=== PATIENT | male | born 1960 | race Caucasian/White ===

== ENCOUNTER 2018-01-05 07:59 | Inpatient (IN) | payer OTHER ==
[~2018-01-05] VITALS: Ht 182.9 cm; Wt 62.2 kg
[2018-01-05] VITALS (9 sets, daily range): BP systolic 100–150; BP diastolic 58–80; PULSE 58–101; RESP 12–22; TEMP 98–99.1; O2SAT 97–100
[~2018-01-05 07:59] MED LIST: FLEX10TA PO; PROT40TA PO; SULF500T35 PO
[2018-01-05] MEDS ORDERED: BALS750C PO (08:16)
[2018-01-05] MEDS ORDERED: AZAT50 PO (08:16)
[2018-01-05] MEDS ORDERED: SODIUM CHLOR 0.9% 1000 ML INJ 1,000 ML IV SCH ×2 (08:51→14:00)
[2018-01-05] MEDS ORDERED: DICYCLOMINE HCL 20 MG/2 ML VIAL IM ONE (09:00)
[2018-01-05] MEDS ORDERED: ONDANSETRON HCL 4 MG/2 ML VIAL IVP ONE (09:00)
[2018-01-05] MEDS ORDERED: SODIUM CHLORIDE 0.9% FLUSH 10 ML FLUSH IV FLUSH PRN ×2 (09:00→13:15)
[2018-01-05] MEDS ORDERED: DIATRIZOATE MEGLUM/DIATRIZOATE SOD 9 ML CUP ONE (09:04)
[2018-01-05 09:15] LABS: BLOOD, URINE NEG (NEG); GLUCOSE,URINE NEG (NEG); KETONE, URINE TRACE mg/dL (NEG); MUCUS URINE MANY /lpf (OCC); NITRITE,URINE NEG (NEG); URINE LEUKOCYTE ESTERASE NEG (NEG)
[2018-01-05 09:17] LABS: BILIRUBIN, URINE NEG (NEG)
[2018-01-05 09:18] LABS: AUTOMATED NEUTROPHIL # 4.6 TH/MM3 (1.8-7.7); BASOPHIL % 0.3 % (0.0-2.0); EOSINOPHIL # 0.1 TH/MM3 (0-0.4); EOSINOPHIL % 1.8 % (0.0-4.0); HEMOGLOBIN 13.7 GM/DL (13.0-17.0); LYMPH % 11.5 % (9.0-44.0); LYMPHOCYTE # 0.7 TH/MM3 (1.0-4.8); MEAN CELL VOLUME 92.2 FL (80.0-100.0); MEAN CORPUSCULAR HEMOGLOBIN 31.6 PG (27.0-34.0); MEAN CORPUSCULAR HGB CONC 34.3 % (32.0-36.0); MEAN PLATELET VOLUME 7.3 FL (7.0-11.0); MONO % 8.7 % (0.0-8.0); MONOCYTE # 0.5 TH/MM3 (0-0.9); NEUT % 77.7 % (16.0-70.0); PLATELET COUNT 366 TH/MM3 (150-450); RED BLOOD COUNT 4.34 MIL/MM3 (4.50-5.90); RED CELL DISTRIBUTION WIDTH 15.5 % (11.6-17.2); URINE COLOR AMBER (YELLW/STRAW); WHITE BLOOD COUNT 5.9 TH/MM3 (4.0-11.0)
[2018-01-05 09:36] LABS: ALT (GPT) 7 U/L (12-78)
[2018-01-05 09:38] LABS: ALKALINE PHOSPHATASE 51 U/L (45-117); TOTAL BILIRUBIN ADULT 0.8 MG/DL (0.2-1.0)
[2018-01-05 09:45] LABS: ALBUMIN 3.3 GM/DL (3.4-5.0); AST (GOT) 21 U/L (15-37); BICARBONATE 26.2 MEQ/L (21.0-32.0); BLOOD UREA NITROGEN 7 MG/DL (7-18); CHLORIDE 103 MEQ/L (98-107); CREATININE 0.77 MG/DL (0.60-1.30); GLOMERULAR FILTRATION RATE 105 ML/MIN (>89); GLUCOSE,RANDOM 89 MG/DL (74-106); SODIUM (NA) 136 MEQ/L (136-145)
[2018-01-05] MEDS ORDERED: IOHEXOL 350 MG/ML 10 ML VIAL (for RAD DIAG) IVCONTRAST ONE (12:39)
--- NOTE | 2018-01-05 12:52 | RADRPT ---
EXAM DATE/TIME: 01/05/2018 12:33 [place] COMPARISON: CT ABDOMEN & PELVIS W CONTRAST, March 17, 2013, 11:28. INDICATIONS : Abdominal pain IV CONTRAST: 70 cc Omnipaque 350 (iohexol) IV ORAL CONTRAST: Prescribed oral contrast ingested. RADIATION DOSE: 4.91 CTDIvol (mGy) MEDICAL HISTORY : Ulcerative colitis. Hepatitis B. SURGICAL HISTORY : None. ENCOUNTER: Initial ACUITY: 1 day PAIN SCALE: 6/10 LOCATION: Bilateral Abdomen TECHNIQUE: Volumetric scanning of the abdomen and pelvis was performed. Using automated exposure control and ad justment of the mA and/or kV according to patient size, radiation dose was kept as low as reasonably achievable to obtain optimal diagnostic quality images. DICOM format image data is available electro nically for review and comparison. FINDINGS: The lung base is are clear The liver is free of focal defects The spleen, pancreas and adrenals appear normal There is symmetric renal function There is bowel wall thickening beginning in mid-descending colon extending to mid descending colon wi th some mild stranding consistent with 8 colitis. There is no ascites There is no retroperitoneal adenopathy Pelvic contents are unremarkable CONCLUSION: Mild to moderate colitis involving transverse colon There is no free air or free fluid . Alex Johnson MD FACR on January 05, 2018 at 12:49 Board Certified Radiologist. This report was verified electronically.
[2018-01-05] MEDS ORDERED: ONDANSETRON HCL 4 MG/2 ML VIAL IVP PRN (13:15)
[2018-01-05] MEDS ORDERED: ACETAMINOPHEN 325 MG TAB PO PRN (13:15)
[2018-01-05] MEDS ORDERED: NALOXONE HCL 0.4 MG/ML AMP IV PUSH PRN (13:15)
--- NOTE | 2018-01-05 13:32 | HHI.HP ---
HPI Service [facility] Hospitalists Primary Care Physician Ezio Vail MD, PhD Admission Diagnosis C Diff diarrhea Chief Complaint: diarrhea Travel History International Travel<30 Days: No Contact w/Intl Traveler <30 Da: No Traveled to Known Affected Are: No History of Present Illness This is a 57 year old male patient with a past medical which includes chronic ulcerative colitis for 20+ years, DDD, hep C virus. Patient was having bloody diarrhea and was started on Cirpo and Flagyl for possible colitis flare up about two weeks ago. After completing the Cipro and Flagyl his bloody diarrhea stopped. Patient then had colonoscopy (01/01) at that time patient was told to double his Azathioprine. Patient then presented to the ER today with Diarrhea, C diff positive. Patient reports associate intermitted stabbing abd pain as well. Patient has been having uncontrollable diarrhea up to 30 episodes a day. Patient reports feeling run down and fatigued, possible subjective fever although he did not check with a thermometer. Patient believes has has lost between 10 to 15 pounds over the past 2-3 weeks. Patient denies chills, SOB, chest pain or diaphoresis. Patient reports he has not had C diff before. Review of Systems Constitutional: COMPLAINS OF: Weight loss Gastrointestinal: COMPLAINS OF: Abdominal pain, Diarrhea Past Family Social History Past Medical History chronic ulcerative colitis, DDD, hep C virus Past Surgical History Biopsy of liver, colonoscopy, Paravertebral nerve block Reported Medications Azathioprine 50 Mg Tab 100 Mg PO DAILY Hazardous agent use appropriate precautions for handling and disposal. Balsalazide 750 Mg Cap 750 Mg PO TID Allergies: Coded Allergies: No Known Allergies (Verified Allergy, Unknown, 01/05/18) Family History Noncontributory Social History denies current ETOH use Former tobacco use Physical Exam Vital Signs Vital Signs Date Time Temp Pulse Resp B/P (MAP) Pulse Ox O2 Delivery O2 Flow Rate FiO2 01/05/18 12:00 68 131/74 (93) 01/05/18 10:00 64 12 132/80 (97) 100 Room Air 01/05/18 08:58 100 Room Air 01/05/18 08:56 70 22 100/74 (83) 100 Room Air 01/05/18 08:00 98.0 101 18 114/66 (82) 100 Physical Exam GENERAL: This is a thin, well-developed patient, fatigued and weak in appearance SKIN: No rashes, ecchymoses or lesions. Cool and dry. HEAD: Atraumatic. Normocephalic. No temporal or scalp tenderness. EYES: Extraocular motions intact. No scleral icterus. No injection or drainage. CARDIOVASCULAR: Regular rate and rhythm RESPIRATORY: Clear to auscultation. Breath sounds equal bilaterally. GASTROINTESTINAL: Abdomen soft, generalized tenderness, nondistended. MUSCULOSKELETAL: Extremities without clubbing, cyanosis, or edema. No joint tenderness, effusion, or edema noted. No calf tenderness. Negative Homans sign bilaterally. NEUROLOGICAL: Awake and alert. No focal deficits. Motor and sensory grossly within normal limits. 4-5 out of 5 muscle strength in all muscle groups. Normal speech. Laboratory Laboratory Tests Test 01/05/18 08:50 White Blood Count 5.9 Red Blood Count 4.34 Hemoglobin 13.7 Hematocrit 40.0 Mean Corpuscular Volume 92.2 Mean Corpuscular Hemoglobin 31.6 Mean Corpuscular Hemoglobin Concent 34.3 Red Cell Distribution Width 15.5 Platelet Count 366 Mean Platelet Volume 7.3 Neutrophils (%) (Auto) 77.7 Lymphocytes (%) (Auto) 11.5 Monocytes (%) (Auto) 8.7 Eosinophils (%) (Auto) 1.8 Basophils (%) (Auto) 0.3 Neutrophils # (Auto) 4.6 Lymphocytes # (Auto) 0.7 Monocytes # (Auto) 0.5 Eosinophils # (Auto) 0.1 Basophils # (Auto) 0.0 CBC Comment DIFF FINAL Differential Comment Urine Color ODETTE Urine Turbidity HAZY Urine pH 6.0 Urine Specific [place] 1.025 Urine Protein 30 Urine Glucose (UA) NEG Urine Ketones TRACE Urine Occult Blood NEG Urine Nitrite NEG Urine Bilirubin NEG Urine Urobilinogen 2.0 Urine Leukocyte Esterase NEG Urine RBC LESS THAN 1 Urine WBC 2 Urine Mucus MANY Microscopic Urinalysis Comment CULT NOT INDICATED Stool C. difficile Toxin (PCR) POSITIVE Stl C. difficile Toxin Epiderm 027 PRESUMPTIVE NEGATIVE Blood Urea Nitrogen 7 Creatinine 0.77 Random Glucose 89 Total Protein 7.0 Albumin 3.3 Calcium Level 9.0 Alkaline Phosphatase 51 Aspartate Amino Transf (AST/SGOT) 21 Alanine Aminotransferase (ALT/SGPT) 7 Total Bilirubin 0.8 Sodium Level 136 Potassium Level 4.4 Chloride Level 103 Carbon Dioxide Level 26.2 Anion Gap 7 Estimat Glomerular Filtration Rate 105 Lipase 71 Date/Time Source Procedure Growth Status 01/05/18 08:50 Stool Stool Pending Received Result Diagram: 01/05/1850 01/05/18 0850 Imaging Last Impressions Abdomen/Pelvis CT 01/05/18850 Signed Impressions: Service Date/Time: Friday, January 05, 2018 12:33 - CONCLUSION: Mild to moderate colitis involving transverse colon There is no free air or free fluid . Alex Johnson MD FACR [place] VTE Risk Assessment Caprini VTE Risk Assessment: No/Low Risk (score <= 1) Caprini Risk Assessment Model Point Value = 1 Point Value = 2 Point Value = 3 Point Value = 5 Age 41-60 Minor surgery BMI > 25 kg/m2 Swollen legs Varicose veins or History of unexplained or recurrent spontaneous Oral contraceptives or hormone replacement Sepsis (< 1 month) Serious lung disease, including pneumonia (< 1 month) Abnormal pulmonary function Acute myocardial infarction Congestive heart failure (< 1 month) History of inflammatory bowel disease Medical patient at bed rest Age 61-74 Arthroscopic surgery Major open surgery (> 45 min) Laparoscopic surgery (> 45 min) Malignancy Confined to bed (> 72 hours) Immobilizing plaster cast Central venous access Age >= 75 History of VTE Family history of VTE Factor V Leiden Prothrombin [id number] Lupus anticoagulant Anticardiolipin antibodies Elevated serum homocysteine Heparin-induced thrombocytopenia Other congenital or acquired thrombophilia Stroke (< 1 month) Elective arthroplasty Hip, pelvis, or leg fracture Acute spinal cord injury (< 1 month) Prophylaxis Regimen Total Risk Factor Score Risk Level Prophylaxis Regimen 0-1 Low Early ambulation 2 Moderate Order ONE of the following: *Sequential Compression Device (SCD) *Heparin 5000 units SQ BID 3-4 Higher Order ONE of the following medications: *Heparin 5000 units SQ TID *Enoxaparin/Lovenox 40 mg SQ daily (WT < 150 kg, CrCl > 30 mL/min) *Enoxaparin/Lovenox 30 mg SQ daily (WT < 150 kg, CrCl > 10-29 mL/min) *Enoxaparin/Lovenox 30 mg SQ BID (WT < 150 kg, CrCl > 30 mL/min) AND/OR *Sequential Compression Device (SCD) 5 or more Highest Order ONE of the following medications: *Heparin 5000 units SQ TID (Preferred with Epidurals) *Enoxaparin/Lovenox 40 mg SQ daily (WT < 150 kg, CrCl > 30 mL/min) *Enoxaparin/Lovenox 30 mg SQ daily (WT < 150 kg, CrCl > 10-29 mL/min) *Enoxaparin/Lovenox 30 mg SQ BID (WT < 150 kg, CrCl > 30 mL/min) AND *Sequential Compression Device (SCD) Assessment and Plan Problem List: (1) C. difficile diarrhea ICD Codes: A04.72 - Enterocolitis due to Clostridium difficile, not specified as recurrent Plan: C diff diarrhea This is a 57 year old male patient with a past medical which includes chronic ulcerative colitis, DDD, hep C. Patient was started on Cirpo and Flagyl for possible colitis. Patient then presented to the ER today with Diarrhea, C diff positive. C diff positive Vanco oral 125 mg QID supportive care IV fluids Consult GI, patient with ulcerative colitis seen on colonoscopy 01/01/18 and now with C diff recheck BMP in AM Ulcerative colitis continue patient's home Azathioprine 50mg PO BID and Balsalazide 750 mg PO TID, discussed with GI recommend holding request GI consult to assist recent colonoscopy 01/01/18: Normal terminal ileum, colonic mucosa appeared normal in the ascending colon, cecum, transverse colon and descending colon, Circumferential abnormal mucosa was found in the sigmoid colon and rectum. The mucosa was congested, edematous, erythematous, nodular, friable, ulcerated and had scarring and deep ulcers; multiple biopsies were performed. CT abd/Pelvis reviewed and reveals: Mild to Moderate colitis involving transverse colon. There is no free air or free fluid. (2) Ulcerative colitis ICD Codes: K51.90 - Ulcerative colitis, unspecified, without complications Assessment and Plan Patient examined. Assessment and plan formulated with Sana Claudio PA-C. I agree with the above. recent UC flare seen by GI. s/p c-scope on 01/01 with sigmoid and rectal involvement. pt on cipro/flagyl x 1 week before c scope for bloody diarrhea. imuran was doubled. now here with persistent up to 30bm/day called dr Tarango. hold imuran. will start ivf and vanco. admit. Sana Claudio Jan 05, 2018 13:32 Bg Wilkerson MD Jan 05, 2018 14:26
[2018-01-05] MEDS ORDERED: metroNIDAZOLE 500 MG TAB PO SCH (14:00)
--- NOTE | 2018-01-05 14:33 | PD.CONS ---
HPI History of Present Illness This is a 57 year old M with GI history significant for ulcerative colitis and history of Hepatitis C. Pt is known to our service, recently evaluated in the clinic for bloody diarrhea, was prescribed Cipro and Flagyl for one week for UC flare. Pt reports finishing abx prior to colonoscopy done by Dr. Lora (01/01) --> Normal terminal ileum, Colonic mucosa appeared normal in the ascending colon , cecum, transverse colon, and descending colon, biopsies obtained every 10cm, circumferential abnormal mucosa in the sigmoid colon and rectum. Mucosa appeared congested, edematous, erythematous, friable, ulcerated and had scarring and deep ulcers. Internal hemorrhoids. Pt reports his Azathioprine dosage was doubled, currently 100mg daily and he was continued on Balsalazide at 750mg daily. He denies any continued blood in diarrhea, however, states the diarrhea has been increasing in frequency. Now at least 30 episodes a day with associated fecal incontinence. C. Diff tested in ER, toxin PCR positive, epid negative. Pt denies history of C. Diff. Denies recent abx other than Cipro and Flagyl recently prescribed by our service. He thinks he may have had a fever Friday morning because he woke up covered in sweat, but he did not check his temperature. Denies recent travel. Reports lower abdominal pain, radiating across lower abdomen, intermittent. Denies association with BMs. CT abdomen and pelvis W IV contrast (01/05) noted --> Mild to moderate colitis involving transverse colon. There is no free air or free fluid. (Michell Ingram) PFSH Past Medical History UC Hep C DDD Past Surgical History Liver biopsy Colonoscopy (01/01/18) Paravertebral nerve block (Michell Ingram) Coded Allergies: No Known Allergies (Verified Allergy, Unknown, 01/05/18) Social History Denies ETOH Former smoker (Michell Ingram) Review of Systems Gastrointestinal: COMPLAINS OF: Abdominal pain, Diarrhea, DENIES: Bloody stools , Constipation, Nausea, Vomiting, Swelling of Abdomen (Michell Ingram) GI Exam Vitals I&O Vital Signs Date Time Temp Pulse Resp B/P (MAP) Pulse Ox O2 Delivery O2 Flow Rate FiO2 01/05/18 13:10 99 21 01/05/18 12:00 68 131/74 (93) 01/05/18 10:00 64 12 132/80 (97) 100 Room Air 01/05/18 08:58 100 Room Air 01/05/18 08:56 70 22 100/74 (83) 100 Room Air 01/05/18 08:00 98.0 101 18 114/66 (82) 100 I/O 01/04/18 01/04/18 01/04/18 01/05/18 01/05/18 01/05/18 07:00 15:00 23:00 07:00 15:00 23:00 Intake Total 1000 ml Balance 1000 ml Intake IV Total 1000 ml Imaging Last Impressions Abdomen/Pelvis CT 01/05/18 0851 Signed Impressions: Service Date/Time: Friday, January 05, 2018 12:33 - CONCLUSION: Mild to moderate colitis involving transverse colon There is no free air or free fluid . Alex Johnson MD FACR Laboratory Test 01/05/18 08:50 White Blood Count 5.9 TH/MM3 Red Blood Count 4.34 MIL/MM3 Hemoglobin 13.7 GM/DL Hematocrit 40.0 % Mean Corpuscular Volume 92.2 FL Mean Corpuscular Hemoglobin 31.6 PG Mean Corpuscular Hemoglobin Concent 34.3 % Red Cell Distribution Width 15.5 % Platelet Count 366 TH/MM3 Mean Platelet Volume 7.3 FL Neutrophils (%) (Auto) 77.7 % Lymphocytes (%) (Auto) 11.5 % Monocytes (%) (Auto) 8.7 % Eosinophils (%) (Auto) 1.8 % Basophils (%) (Auto) 0.3 % Neutrophils # (Auto) 4.6 TH/MM3 Lymphocytes # (Auto) 0.7 TH/MM3 Monocytes # (Auto) 0.5 TH/MM3 Eosinophils # (Auto) 0.1 TH/MM3 Basophils # (Auto) 0.0 TH/MM3 CBC Comment DIFF FINAL Differential Comment Urine Color ODETTE Urine Turbidity HAZY Urine pH 6.0 Urine Specific [place] 1.025 Urine Protein 30 mg/dL Urine Glucose (UA) NEG mg/dL Urine Ketones TRACE mg/dL Urine Occult Blood NEG Urine Nitrite NEG Urine Bilirubin NEG Urine Urobilinogen 2.0 MG/DL Urine Leukocyte Esterase NEG Urine RBC LESS THAN 1 /hpf Urine WBC 2 /hpf Urine Mucus MANY /lpf Microscopic Urinalysis Comment CULT NOT INDICATED Stool C. difficile Toxin (PCR) POSITIVE Stl C. difficile Toxin Epiderm 027 PRESUMPTIVE NEGATIVE Blood Urea Nitrogen 7 MG/DL Creatinine 0.77 MG/DL Random Glucose 89 MG/DL Total Protein 7.0 GM/DL Albumin 3.3 GM/DL Calcium Level 9.0 MG/DL Alkaline Phosphatase 51 U/L Aspartate Amino Transf (AST/SGOT) 21 U/L Alanine Aminotransferase (ALT/SGPT) 7 U/L Total Bilirubin 0.8 MG/DL Sodium Level 136 MEQ/L Potassium Level 4.4 MEQ/L Chloride Level 103 MEQ/L Carbon Dioxide Level 26.2 MEQ/L Anion Gap 7 MEQ/L Estimat Glomerular Filtration Rate 105 ML/MIN Lipase 71 U/L Date/Time Source Procedure Growth Status 01/05/18 08:50 Stool Stool Pending Received Physical Examination HEENT: Normocephalic; atraumatic CHEST: Even/unlabored CARDIAC: RRR ABDOMEN: Nondistended, soft, lower abdominal tenderness, bowel sounds active EXTREMITIES: No clubbing, cyanosis, or edema. SKIN: Normal; no rash; no jaundice. 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 (Michell Ingram) Assessment and Plan Plan Assessment: - Chronic UC, managed outpatient with Azathioprine 100mg daily and Balsalazide 750mg daily. Recently evaluated in office for blood diarrhea, given one week prescription of Cipro and Flagyl Finished abx prior to colonoscopy. Colonoscopy (01/01/18) --> Normal terminal ileum, Colonic mucosa appeared normal in the ascending colon, cecum, transverse colon, and descending colon, biopsies obtained every 10cm, circumferential abnormal mucosa in the sigmoid colon and rectum. Mucosa appeared congested, edematous, erythematous, friable, ulcerated and had scarring and deep ulcers. Internal hemorrhoids. Pt reports Azathioprine dose was doubled after procedure. Presented to ER today with complaints of lower abdominal pain, intermittent, not associated with BMs and uncontrollable diarrhea. Reports 30 episodes a day, now with fecal incontinence. Denies continuation of blood in stool. C diff toxin PCR positive, epid negative. Denies history of C. Diff. Reports possible fever Friday morning. Denies recent travel, recent abx other than those previously mentioned. CT abdomen and pelvis with IV contrast (01/05) noted --> Mild to moderate colitis involving transverse colon. There is no free air or free fluid. - Hx Hepatitis C- LFTs WNL Plan: Oral Vanco Probiotics Stool count Will hold UC meds due to active infection Obtain office records for biopsy results Monitor labs Further recommendations to follow based on clinical course Pt has been seen and examined by myself and Dr. Tarango and this note is written on her behalf (Michell Ingram) Physician Comments seen, examined agree with above we will send tb QuantaSure and hep b viral load in preparation for possible biologics (Linda Tarango MD) Michell Ingram Jan 05, 2018 14:33 Linda Tarango MD Jan 05, 2018 17:18
--- NOTE | 2018-01-05 15:23 | PD ---
HPI Chief Complaint: Abdominal Pain Time Seen by Provider: 08:51 Travel History International Travel<30 days: No Contact w/Intl Traveler<30days: No Traveled to known affect area: No History of Present Illness HPI This is a 57-year-old male with history of colitis who had a colonoscopy last week, who presents today with complaints of abdominal pain and watery diarrhea. Patient states he was on ciprofloxacin and Flagyl prior to the colonoscopy. He states that the day after his colonoscopy he started experiencing the watery diarrhea. He denies any fevers or chills. He reports weakness and feels dehydrated. There is no blood in his stool but he did previous to the colonoscopy. There is nausea with no vomiting. PFSH Past Medical History Depression: Yes Heart Rhythm Problems: No Cancer: No Cardiac Catheterization: No Cardiovascular Problems: No High Cholesterol: No Congestive Heart Failure: No Diabetes: No Endocrine: No Gastrointestinal Disorders: Yes (COLITIS) Genitourinary: No Headaches: Yes Hepatitis: Yes (HEP C, STATES HE WAS TREATED AND IS NOW FREE OF HEPATITIS) Hypertension: No Musculoskeletal: Yes (HERNIATED DISC IN NECK) Neurologic: Yes Psychiatric: Yes Reproductive: No Respiratory: No Immunizations Current: Yes Myocardial Infarction: No Thyroid Disease: No Past Surgical History Surgical History: No Previous Surgery Coronary Artery Bypass Graft: No Social History Alcohol Use: Yes (occ) Tobacco Use: No Substance Use: No Allergies-Medications (Allergen,Severity, Reaction): Coded Allergies: No Known Allergies (Verified Allergy, Unknown, 01/05/18) Reported Meds & Prescriptions Reported Meds & Active Scripts Active Reported Azathioprine 50 Mg Tab 100 Mg PO DAILY Hazardous agent use appropriate precautions for handling and disposal. Balsalazide 750 Mg Cap 750 Mg PO TID Review of Systems Except as stated in HPI: all other systems reviewed are Neg General / Constitutional: No: Fever, Chills HENT: No: Headaches, Lightheadedness, Neck Pain Cardiovascular: No: Chest Pain or Discomfort, Palpitations Respiratory: No: Cough Gastrointestinal: Positive: Nausea, Diarrhea, Abdominal Pain (Watery lower), Changes in Bowel Habits, No: Vomiting, Hematochezia Genitourinary: No: Urgency, Frequency, Dysuria Musculoskeletal: Positive: Weakness (Generalized), No: Pain Neurologic: Positive: Weakness, No: Dizziness (Generalized), Headache Physical Exam Narrative GENERAL: Well-developed well-nourished male who appears weak. SKIN: Focused skin assessment warm/dry. HEAD: Atraumatic. Normocephalic. EYES: . No scleral icterus. No injection or drainage. ENT: No nasal bleeding or discharge. Mucous membranes pink and dry. NECK: Trachea midline. No JVD. CARDIOVASCULAR: Regular rate and rhythm. No murmur appreciated. RESPIRATORY: No accessory muscle use. Clear to auscultation. Breath sounds equal bilaterally. GASTROINTESTINAL: Abdomen soft, nondistended. There is subjective tenderness in his lower abdominal segment bilaterally. No rebound with mild guarding. MUSCULOSKELETAL: No obvious deformities. No clubbing. No cyanosis. No edema. NEUROLOGICAL: Awake and alert. No obvious cranial nerve deficits. Motor grossly within normal limits. Normal speech. Data Data Last Documented VS Vital Signs Date Time Temp Pulse Resp B/P (MAP) Pulse Ox O2 Delivery O2 Flow Rate FiO2 01/05/18 13:10 99 21 01/05/18 12:00 68 131/74 (93) 01/05/18 11:00 14 Room Air 01/05/18 08:00 98.0 Orders Orders Complete Blood Count With Diff (01/05/18 08:51) Comprehensive Metabolic Panel (01/05/18 08:51) Lipase (01/05/18 08:51) Urinalysis - C+S If Indicated (01/05/18 08:51) Ct Abd/Pel W Iv Contrast(Rout) (01/05/18 08:51) Iv Access Insert/Monitor (01/05/18 08:51) Ecg Monitoring (01/05/18 08:51) Oximetry (01/05/18 08:51) Ondansetron Inj (Zofran Inj) (01/05/18 09:00) Sodium Chlor 0.9% 1000 Ml Inj (Ns 1000 M (01/05/18 08:51) Sodium Chloride 0.9% Flush (Ns Flush) (01/05/18 09:00) Enteric Path (Stool) (01/05/18 08:51) C Diff Toxin Pcr (01/05/18 08:51) Dicyclomine Inj (Bentyl Inj) (01/05/18 09:00) Oral Contrast - Adult (01/05/18 09:03) Diatrizoate Liq ( Gastroview Liq) (01/05/18 09:04) Isolation 08,20 (01/05/18 11:49) Iohexol 350 Inj (Omnipaque 350 Inj) (01/05/18 12:39) Place In Observation (01/05/18 ) Vital Signs (Adult) Q4H (01/05/18 13:06) Activity Oob With Assistance (01/05/18 13:06) Diet Regular Basic (01/05/18 Lunch) Sodium Chlor 0.9% 1000 Ml Inj (Ns 1000 M (01/05/18 14:00) Sodium Chloride 0.9% Flush (Ns Flush) (01/05/18 13:15) Sodium Chloride 0.9% Flush (Ns Flush) (01/05/18 21:00) Acetaminophen (Tylenol) (01/05/18 13:15) Ondansetron Inj (Zofran Inj) (01/05/18 13:15) Basic Metabolic Panel (Bmp) (01/06/18 06:00) Complete Blood Count With Diff (01/06/18 06:00) Resp Oxygen Geo C Titrat 1-4 L (01/05/18 ) Scd Bilateral/Knee High MARISELA.BID (01/05/18 13:06) Naloxone Inj (Narcan Inj) (01/05/18 13:15) Metronidazole (Flagyl) (01/05/18 14:00) Admit Order (Ed Use Only) (01/05/18 13:09) Labs Laboratory Tests Test 01/05/18 08:50 White Blood Count 5.9 TH/MM3 Red Blood Count 4.34 MIL/MM3 Hemoglobin 13.7 GM/DL Hematocrit 40.0 % Mean Corpuscular Volume 92.2 FL Mean Corpuscular Hemoglobin 31.6 PG Mean Corpuscular Hemoglobin Concent 34.3 % Red Cell Distribution Width 15.5 % Platelet Count 366 TH/MM3 Mean Platelet Volume 7.3 FL Neutrophils (%) (Auto) 77.7 % Lymphocytes (%) (Auto) 11.5 % Monocytes (%) (Auto) 8.7 % Eosinophils (%) (Auto) 1.8 % Basophils (%) (Auto) 0.3 % Neutrophils # (Auto) 4.6 TH/MM3 Lymphocytes # (Auto) 0.7 TH/MM3 Monocytes # (Auto) 0.5 TH/MM3 Eosinophils # (Auto) 0.1 TH/MM3 Basophils # (Auto) 0.0 TH/MM3 CBC Comment DIFF FINAL Differential Comment Urine Color ODETTE Urine Turbidity HAZY Urine pH 6.0 Urine Specific [place] 1.025 Urine Protein 30 mg/dL Urine Glucose (UA) NEG mg/dL Urine Ketones TRACE mg/dL Urine Occult Blood NEG Urine Nitrite NEG Urine Bilirubin NEG Urine Urobilinogen 2.0 MG/DL Urine Leukocyte Esterase NEG Urine RBC LESS THAN 1 /hpf Urine WBC 2 /hpf Urine Mucus MANY /lpf Microscopic Urinalysis Comment CULT NOT INDICATED Stool C. difficile Toxin (PCR) POSITIVE Stl C. difficile Toxin Epiderm 027 PRESUMPTIVE NEGATIVE Blood Urea Nitrogen 7 MG/DL Creatinine 0.77 MG/DL Random Glucose 89 MG/DL Total Protein 7.0 GM/DL Albumin 3.3 GM/DL Calcium Level 9.0 MG/DL Alkaline Phosphatase 51 U/L Aspartate Amino Transf (AST/SGOT) 21 U/L Alanine Aminotransferase (ALT/SGPT) 7 U/L Total Bilirubin 0.8 MG/DL Sodium Level 136 MEQ/L Potassium Level 4.4 MEQ/L Chloride Level 103 MEQ/L Carbon Dioxide Level 26.2 MEQ/L Anion Gap 7 MEQ/L Estimat Glomerular Filtration Rate 105 ML/MIN Lipase 71 U/L MDM Medical Decision Making Medical Screen Exam Complete: Yes Emergency Medical Condition: Yes Differential Diagnosis Diverticulitis versus perforated viscus versus colitis versus C. difficile Narrative Course 57-year-old male who presents with watery diarrhea and abdominal pain. Patient had a colonoscopy last week. Prior to the colonoscopy he was being treated for colitis with Cipro and Flagyl. C. difficile PCR is positive. The patient is dehydrated on exam. He will be admitted under observation to the hospitalist service. [facility] who is agreeable to the plan. Diagnosis Primary Impression: C. difficile colitis Additional Impressions: Dehydration Abdominal pain Admitting Information Admitting Physician Requests: Observation Jose C Contreras MD Jan 05, 2018 15:23
[2018-01-05] MEDS: VANCOMYCIN 500 MG VIAL (FOR ORAL USE ONLY) PO SCH ×3 (15:52→21:05)
[2018-01-05] MEDS: SODIUM CHLORIDE 0.9% FLUSH 10 ML FLUSH IV FLUSH SCH (21:00)
[2018-01-05] MEDS: LACTOBACILLUS ACIDOPHILUS TAB PO SCH (21:04)
[2018-01-06 05:44] LABS: AUTOMATED NEUTROPHIL # 5.3 TH/MM3 (1.8-7.7); BASOPHIL % 0.4 % (0.0-2.0); EOSINOPHIL # 0.1 TH/MM3 (0-0.4); HEMATOCRIT 35.2 % (39.0-51.0); LYMPH % 10.9 % (9.0-44.0); LYMPHOCYTE # 0.7 TH/MM3 (1.0-4.8); MEAN CELL VOLUME 91.3 FL (80.0-100.0); MEAN CORPUSCULAR HEMOGLOBIN 31.1 PG (27.0-34.0); MEAN CORPUSCULAR HGB CONC 34.1 % (32.0-36.0); MEAN PLATELET VOLUME 7.2 FL (7.0-11.0); MONO % 9.9 % (0.0-8.0); MONOCYTE # 0.7 TH/MM3 (0-0.9); NEUT % 76.8 % (16.0-70.0); PLATELET COUNT 342 TH/MM3 (150-450); RED BLOOD COUNT 3.86 MIL/MM3 (4.50-5.90); RED CELL DISTRIBUTION WIDTH 15.4 % (11.6-17.2); WHITE BLOOD COUNT 6.9 TH/MM3 (4.0-11.0)
[2018-01-06 06:04] LABS: BICARBONATE 25.6 MEQ/L (21.0-32.0); CALCIUM 8.3 MG/DL (8.5-10.1); CREATININE 0.67 MG/DL (0.60-1.30)
[2018-01-06] MEDS: SODIUM CHLORIDE 0.9% FLUSH 10 ML FLUSH IV FLUSH SCH ×2 (07:27→22:23)
[2018-01-06] MEDS: VANCOMYCIN 500 MG VIAL (FOR ORAL USE ONLY) PO SCH ×4 (07:27→22:19)
[2018-01-06] MEDS: LACTOBACILLUS ACIDOPHILUS TAB PO SCH ×2 (07:27→22:21)
[2018-01-06 08:00] VITALS: BP 98/71; PULSE 89; RESP 16; TEMP 98.1; O2SAT 97
[2018-01-06 08:50] VITALS: O2SAT 97
--- NOTE | 2018-01-06 09:01 | HHI.PR ---
Subjective Remarks Patient reports, "It's about the same." Continues to have 20 - 30 liquid BMs per day denies blood in stool Objective Vitals Vital Signs Date Time Temp Pulse Resp B/P (MAP) Pulse Ox O2 Delivery O2 Flow Rate FiO2 01/06/18 08:50 97 01/06/18 08:00 98.1 89 16 98/71 (80) 97 01/05/18 22:00 99.1 79 16 113/58 (76) 97 01/05/18 16:00 98.1 73 16 122/67 (85) 100 01/05/18 15:36 01/05/18 13:10 99 21 01/05/18 12:00 68 131/74 (93) 01/05/18 11:00 58 14 150/80 (103) 100 Room Air 01/05/18 10:00 64 12 132/80 (97) 100 Room Air Result Diagram: 01/06/18 0450 01/06/18 0450 Other Results Laboratory Tests Test 01/05/18 08:50 01/05/18 20:36 01/06/18 04:50 White Blood Count 5.9 TH/MM3 6.9 TH/MM3 Red Blood Count 4.34 MIL/MM3 3.86 MIL/MM3 Hemoglobin 13.7 GM/DL 12.0 GM/DL Hematocrit 40.0 % 35.2 % Mean Corpuscular Volume 92.2 FL 91.3 FL Mean Corpuscular Hemoglobin 31.6 PG 31.1 PG Mean Corpuscular Hemoglobin Concent 34.3 % 34.1 % Red Cell Distribution Width 15.5 % 15.4 % Platelet Count 366 TH/MM3 342 TH/MM3 Mean Platelet Volume 7.3 FL 7.2 FL Neutrophils (%) (Auto) 77.7 % 76.8 % Lymphocytes (%) (Auto) 11.5 % 10.9 % Monocytes (%) (Auto) 8.7 % 9.9 % Eosinophils (%) (Auto) 1.8 % 2.0 % Basophils (%) (Auto) 0.3 % 0.4 % Neutrophils # (Auto) 4.6 TH/MM3 5.3 TH/MM3 Lymphocytes # (Auto) 0.7 TH/MM3 0.7 TH/MM3 Monocytes # (Auto) 0.5 TH/MM3 0.7 TH/MM3 Eosinophils # (Auto) 0.1 TH/MM3 0.1 TH/MM3 Basophils # (Auto) 0.0 TH/MM3 0.0 TH/MM3 CBC Comment DIFF FINAL DIFF FINAL Differential Comment Urine Color ODETTE Urine Turbidity HAZY Urine pH 6.0 Urine Specific [place] 1.025 Urine Protein 30 mg/dL Urine Glucose (UA) NEG mg/dL Urine Ketones TRACE mg/dL Urine Occult Blood NEG Urine Nitrite NEG Urine Bilirubin NEG Urine Urobilinogen 2.0 MG/DL Urine Leukocyte Esterase NEG Urine RBC LESS THAN 1 /hpf Urine WBC 2 /hpf Urine Mucus MANY /lpf Microscopic Urinalysis Comment CULT NOT INDICATED Stool C. difficile Toxin (PCR) POSITIVE Stl C. difficile Toxin Epiderm 027 PRESUMPTIVE NEGATIVE Blood Urea Nitrogen 7 MG/DL 6 MG/DL Creatinine 0.77 MG/DL 0.67 MG/DL Random Glucose 89 MG/DL 86 MG/DL Total Protein 7.0 GM/DL Albumin 3.3 GM/DL Calcium Level 9.0 MG/DL 8.3 MG/DL Alkaline Phosphatase 51 U/L Aspartate Amino Transf (AST/SGOT) 21 U/L Alanine Aminotransferase (ALT/SGPT) 7 U/L Total Bilirubin 0.8 MG/DL Sodium Level 136 MEQ/L 138 MEQ/L Potassium Level 4.4 MEQ/L 4.2 MEQ/L Chloride Level 103 MEQ/L 104 MEQ/L Carbon Dioxide Level 26.2 MEQ/L 25.6 MEQ/L Anion Gap 7 MEQ/L 8 MEQ/L Estimat Glomerular Filtration Rate 105 ML/MIN 123 ML/MIN Lipase 71 U/L Imaging Last Impressions Abdomen/Pelvis CT 01/05/18 0851 Signed Impressions: Service Date/Time: Friday, January 05, 2018 12:33 - CONCLUSION: Mild to moderate colitis involving transverse colon There is no free air or free fluid . Alex Johnson MD FACR Objective Remarks GENERAL: This is a well-nourished, well-developed patient, in no apparent distress. CARDIOVASCULAR: Regular rate and rhythm RESPIRATORY: Clear to auscultation. Breath sounds equal bilaterally. GASTROINTESTINAL: Abdomen soft, generalized tenderness, nondistended. Normal active bowel sounds MUSCULOSKELETAL: Extremities without clubbing, cyanosis, or edema. NEURO: Alert & Oriented x4 to person, place, time, situation. Moves all ext x4 A/P Problem List: (1) C. difficile diarrhea ICD Codes: A04.72 - Enterocolitis due to Clostridium difficile, not specified as recurrent Plan: C diff diarrhea This is a 57 year old male patient with a past medical which includes chronic ulcerative colitis, DDD, hep C. Patient was started on Cirpo and Flagyl for possible colitis. Patient then presented to the ER today with Diarrhea, C diff positive. C diff positive Vanco oral 125 mg QID supportive care IV fluids Consult GI, patient with ulcerative colitis seen on colonoscopy 01/01/18 and now with C diff Ulcerative colitis continue patient's home Azathioprine 50mg PO BID and Balsalazide 750 mg PO TID, discussed with GI recommend holding request GI consult to assist recent colonoscopy 01/01/18: Normal terminal ileum, colonic mucosa appeared normal in the ascending colon, cecum, transverse colon and descending colon, Circumferential abnormal mucosa was found in the sigmoid colon and rectum. The mucosa was congested, edematous, erythematous, nodular, friable, ulcerated and had scarring and deep ulcers; multiple biopsies were performed. CT abd/Pelvis reviewed and reveals: Mild to Moderate colitis involving transverse colon. There is no free air or free fluid. GI requesting to send tb QuantaSure and hep b viral load in preparation for possible biologics (2) Ulcerative colitis ICD Codes: K51.90 - Ulcerative colitis, unspecified, without complications Assessment and Plan Patient examined. Assessment and plan formulated with Sana Claudio PA-C. I agree with the above. uc flare. cdiff colitis still over 30bm/day add questran. vanco. discuss with Gi..?add iv flagyl or rifaxamin if persists? Sana Claudio Jan 06, 2018 09:01 Bg Wilkerson MD Jan 06, 2018 11:13
[2018-01-06] MEDS: SODIUM CHLOR 0.9% 1000 ML INJ 1,000 ML IV SCH ×2 (10:29→21:55)
[2018-01-06 12:00] VITALS: BP 103/75; PULSE 86; RESP 17; TEMP 98.4; O2SAT 98
[2018-01-06] MEDS: CHOLESTYRAMINE 4 GM PACKET PO SCH ×2 (12:12→22:18)
--- NOTE | 2018-01-06 15:26 | HHI.GIFU ---
Subjective Remarks weak 20+ stools today decreased appetite, highest temp 99.1 +Abdominal cramping (Mireya Shelton) Objective Vitals I&O Vital Signs Date Time Temp Pulse Resp B/P (MAP) Pulse Ox O2 Delivery O2 Flow Rate FiO2 01/06/18 12:00 98.4 86 17 103/75 (84) 98 01/06/18 08:50 97 01/06/18 08:00 98.1 89 16 98/71 (80) 97 01/05/18 22:00 99.1 79 16 113/58 (76) 97 01/05/18 16:00 98.1 73 16 122/67 (85) 100 01/05/18 15:36 I/O 01/05/18 01/05/18 01/05/18 01/06/18 01/06/18 01/06/18 07:00 15:00 23:00 07:00 15:00 23:00 Intake Total 1000 ml 1000 ml Balance 1000 ml 1000 ml Intake IV Total 1000 ml 1000 ml Laboratory Laboratory Tests Test 01/05/18 20:36 01/06/18 04:50 White Blood Count 6.9 Red Blood Count 3.86 Hemoglobin 12.0 Hematocrit 35.2 Mean Corpuscular Volume 91.3 Mean Corpuscular Hemoglobin 31.1 Mean Corpuscular Hemoglobin Concent 34.1 Red Cell Distribution Width 15.4 Platelet Count 342 Mean Platelet Volume 7.2 Neutrophils (%) (Auto) 76.8 Lymphocytes (%) (Auto) 10.9 Monocytes (%) (Auto) 9.9 Eosinophils (%) (Auto) 2.0 Basophils (%) (Auto) 0.4 Neutrophils # (Auto) 5.3 Lymphocytes # (Auto) 0.7 Monocytes # (Auto) 0.7 Eosinophils # (Auto) 0.1 Basophils # (Auto) 0.0 CBC Comment DIFF FINAL Differential Comment Blood Urea Nitrogen 6 Creatinine 0.67 Random Glucose 86 Calcium Level 8.3 Sodium Level 138 Potassium Level 4.2 Chloride Level 104 Carbon Dioxide Level 25.6 Anion Gap 8 Estimat Glomerular Filtration Rate 123 Date/Time Source Procedure Growth Status 01/05/18 08:50 Stool Stool Pending Received Imaging Last Impressions Abdomen/Pelvis CT 01/05/18 0851 Signed Impressions: Service Date/Time: Friday, January 05, 2018 12:33 - CONCLUSION: Mild to moderate colitis involving transverse colon There is no free air or free fluid . Alex Johnson MD FACR Physical Exam HEENT: Pupils round and reactive to light; normocephalic; atraumatic; pale. Dry oral cavity NECK: Neck is supple, no JVD, no lymphadenopathy. CHEST: Chest is clear, low volumes CARDIAC: Regular rate and rhythm ABDOMEN: soft, no bloating, obvious cramping, generalized mid and LLQ tenderness, bowel sounds hyperactive EXTREMITIES: No clubbing, cyanosis, or edema. SKIN: pale, jackie; no rash; no jaundice. SPARES SCHEDULER: No focal deficits; awake, oriented times three. (Mireya Shelton) Assessment and Plan Plan Assessment: Hisltory - Chronic UC, managed outpatient with Azathioprine 100mg daily and Balsalazide 750mg daily. Recently evaluated in office for blood diarrhea, given one week prescription of Cipro and Flagyl Colonoscopy (01/01/18) --> Normal terminal ileum, Colonic mucosa appeared normal in the ascending colon, cecum, transverse colon, and descending colon. Circumferential abnormal mucosa in the sigmoid colon and rectum. Mucosa appeared congested, edematous, erythematous, friable, ulcerated and had scarring and deep ulcers. Internal hemorrhoids. Pt reports Azathioprine dose was doubled after procedure. C-Difficile Colitis with lower abdominal pain, intermittent, 30+ stools /day initally, no obvious bleeding CT abdomen and pelvis with IV contrast (01/05) noted --> Mild to moderate colitis involving transverse colon. There is no free air or free fluid. - Hx Hepatitis C- LFTs WNL, Hepatits Profile pending Anemia, HGB 12. stable without obvious bleeding, 20+ stools today with cramping Plan: Regular for now so patient has choice, asking for soup, soft foods minimal maintain some activity, dangle on side of bed. Oral Vancomycin accurate I&O Zofran as needed for nausea Probiotics Monitor labs Monitor for any rectal bleeding Further recommendations to follow based on symptoms Pt has been seen and examined by myself and Dr. Tarango and this note is written on her behalf (Mireya Shelton) Mireya Shelton Jan 06, 2018 15:26 Linda Tarango MD Jan 06, 2018 21:27
[2018-01-06 16:00] VITALS: BP 113/66; PULSE 78; RESP 17; TEMP 98; O2SAT 97
[2018-01-06 20:19] VITALS: BP 114/76; PULSE 81; RESP 18; TEMP 98.6; O2SAT 97
[2018-01-07] VITALS: BP 108/68; PULSE 88; RESP 18; TEMP 98.7; O2SAT 98
[2018-01-07 06:20] LABS: AUTOMATED NEUTROPHIL # 3.2 TH/MM3 (1.8-7.7); BASOPHIL % 0.6 % (0.0-2.0); EOSINOPHIL # 0.1 TH/MM3 (0-0.4); EOSINOPHIL % 2.7 % (0.0-4.0); HEMOGLOBIN 12.7 GM/DL (13.0-17.0); LYMPH % 14.6 % (9.0-44.0); LYMPHOCYTE # 0.7 TH/MM3 (1.0-4.8); MEAN CELL VOLUME 90.1 FL (80.0-100.0); MEAN CORPUSCULAR HEMOGLOBIN 30.8 PG (27.0-34.0); MEAN CORPUSCULAR HGB CONC 34.2 % (32.0-36.0); MEAN PLATELET VOLUME 6.9 FL (7.0-11.0); MONO % 14.7 % (0.0-8.0); MONOCYTE # 0.7 TH/MM3 (0-0.9); NEUT % 67.4 % (16.0-70.0); PLATELET COUNT 368 TH/MM3 (150-450); RED BLOOD COUNT 4.11 MIL/MM3 (4.50-5.90); RED CELL DISTRIBUTION WIDTH 15.5 % (11.6-17.2); WHITE BLOOD COUNT 4.7 TH/MM3 (4.0-11.0)
[2018-01-07 08:00] VITALS: BP 111/69; PULSE 85; RESP 18; TEMP 96.7; O2SAT 97
[2018-01-07] MEDS: VANCOMYCIN 500 MG VIAL (FOR ORAL USE ONLY) PO SCH ×4 (09:08→22:33)
[2018-01-07] MEDS: LACTOBACILLUS ACIDOPHILUS TAB PO SCH ×2 (09:08→22:33)
[2018-01-07] MEDS: SODIUM CHLORIDE 0.9% FLUSH 10 ML FLUSH IV FLUSH SCH ×2 (09:09→22:48)
[2018-01-07] MEDS: SODIUM CHLOR 0.9% 1000 ML INJ 1,000 ML IV SCH (09:16)
[2018-01-07] MEDS: CHOLESTYRAMINE 4 GM PACKET PO SCH ×2 (09:17→22:33)
--- NOTE | 2018-01-07 09:46 | HHI.PR ---
Subjective Remarks pt c/o persistent diarrhea up to "30bm/day" Objective Vitals heart reg lung cta abd s/nt ext no edema Vital Signs Date Time Temp Pulse Resp B/P (MAP) Pulse Ox O2 Delivery O2 Flow Rate FiO2 01/07/18 08:00 96.7 85 18 111/69 (83) 97 01/07/18 00:00 98.7 88 18 108/68 (81) 98 01/06/18 20:19 98.6 81 18 114/76 (89) 97 01/06/18 16:00 98.0 78 17 113/66 (82) 97 01/06/18 12:00 98.4 86 17 103/75 (84) 98 Result Diagram: 01/07/18 0544 01/06/18 0450 Imaging Last Impressions Abdomen/Pelvis CT 01/05/18 0851 Signed Impressions: Service Date/Time: Friday, January 05, 2018 12:33 - CONCLUSION: Mild to moderate colitis involving transverse colon There is no free air or free fluid . Alex Johnson MD FACR A/P Problem List: (1) C. difficile diarrhea ICD Codes: A04.72 - Enterocolitis due to Clostridium difficile, not specified as recurrent Status: Acute Plan: C diff diarrhea This is a 57 year old male patient with a past medical which includes chronic ulcerative colitis, DDD, hep C. Presented to GI for bloody diarrhea and uncerwent colonoscopy 01/01 consistent with UC flare. His imuran doubled and started on cipro/flagyl. bloody diarrhea improved but peristent diarrhea. Came to ED found to have c.diff and CT changes compatible pt now on vanco/questran discussed with GI. add rifaxamin imuran on hold. GI might start solumedrol f/u pending stool studies cont ivf Ulcerative colitis continue patient's home Azathioprine 50mg PO BID and Balsalazide 750 mg PO TID, discussed with GI recommend holding recent colonoscopy 01/01/18: Normal terminal ileum, colonic mucosa appeared normal in the ascending colon, cecum, transverse colon and descending colon, Circumferential abnormal mucosa was found in the sigmoid colon and rectum. The mucosa was congested, edematous, erythematous, nodular, friable, ulcerated and had scarring and deep ulcers; multiple biopsies were performed. CT abd/Pelvis reviewed and reveals: Mild to Moderate colitis involving transverse colon. There is no free air or free fluid. GI requesting to send tb QuantaSure and hep b viral load in preparation for possible biologics (2) Ulcerative colitis ICD Codes: K51.90 - Ulcerative colitis, unspecified, without complications Status: Bg Cantrell MD Jan 07, 2018 09:46
[2018-01-07 12:00] VITALS: BP 114/77; PULSE 88; RESP 18; TEMP 96.9; O2SAT 98
[2018-01-07] MEDS: methylPREDNISolone SOD SUCC 40 MG/1 ML VIAL IV PUSH SCH ×2 (13:35→22:34)
[2018-01-07] MEDS: metroNIDAZOLE 500 MG INJ 100 ML IV SCH ×2 (13:36→22:30)
[2018-01-07] MEDS: MESALAMINE HD 800 MG DELAYED RELEASE TAB PO SCH (15:26)
[2018-01-07] MEDS: RIFAXIMIN 550 MG TAB PO SCH ×2 (15:27→22:33)
--- NOTE | 2018-01-07 15:42 | HHI.GIFU ---
Subjective Remarks Resting in the bed very pale, but Is able to get some sleep today States diarrhea somewhat better but still had 10+ stools today Afebrile (Mireya Shelton) Objective Vitals I&O Vital Signs Date Time Temp Pulse Resp B/P (MAP) Pulse Ox O2 Delivery O2 Flow Rate FiO2 01/07/18 12:00 96.9 88 18 114/77 (89) 98 01/07/18 08:00 96.7 85 18 111/69 (83) 97 01/07/18 00:00 98.7 88 18 108/68 (81) 98 01/06/18 20:19 98.6 81 18 114/76 (89) 97 01/06/18 16:00 98.0 78 17 113/66 (82) 97 I/O 01/06/18 01/06/18 01/06/18 01/07/18 01/07/18 01/07/18 07:00 15:00 23:00 07:00 15:00 23:00 Intake Total 1000 ml 1360 ml Balance 1000 ml 1360 ml Intake Oral 360 ml IV Total 1000 ml 1000 ml # Voids 3 # Bowel Movements 1 3 Laboratory Laboratory Tests Test 01/07/18 05:44 01/07/18 12:25 White Blood Count 4.7 Red Blood Count 4.11 Hemoglobin 12.7 Hematocrit 37.0 Mean Corpuscular Volume 90.1 Mean Corpuscular Hemoglobin 30.8 Mean Corpuscular Hemoglobin Concent 34.2 Red Cell Distribution Width 15.5 Platelet Count 368 Mean Platelet Volume 6.9 Neutrophils (%) (Auto) 67.4 Lymphocytes (%) (Auto) 14.6 Monocytes (%) (Auto) 14.7 Eosinophils (%) (Auto) 2.7 Basophils (%) (Auto) 0.6 Neutrophils # (Auto) 3.2 Lymphocytes # (Auto) 0.7 Monocytes # (Auto) 0.7 Eosinophils # (Auto) 0.1 Basophils # (Auto) 0.0 CBC Comment DIFF FINAL Differential Comment Erythrocyte Sedimentation Rate 20 Thyroid Stimulating Hormone 3rd Gen 1.630 Date/Time Source Procedure Growth Status 01/05/18 08:50 Stool Stool - Preliminary RESULTS PENDING Resulted Imaging Last Impressions Abdomen/Pelvis CT 01/05/18 0851 Signed Impressions: Service Date/Time: Friday, January 05, 2018 12:33 - CONCLUSION: Mild to moderate colitis involving transverse colon There is no free air or free fluid . Alex Johnson MD FACR Physical Exam HEENT: Pupils round and reactive to light; normocephalic; atraumatic; pale. Dry oral cavity NECK: Neck is supple, no JVD, no lymphadenopathy. CHEST: Chest is clear, low volumes CARDIAC: Regular rate and rhythm ABDOMEN: soft, no bloating, obvious cramping, generalized mid and LLQ tenderness, bowel sounds hyperactive EXTREMITIES: No clubbing, cyanosis, or edema. SKIN: pale, jackie; no rash; no jaundice. [employer]: No focal deficits; awake, oriented times three. (Mireya Shelton) Assessment and Plan Plan Assessment: Hisltory - Chronic UC, managed outpatient with Azathioprine 100mg daily and Balsalazide 750mg daily. Recently evaluated in office for blood diarrhea, given one week prescription of Cipro and Flagyl Colonoscopy (01/01/18) --> Normal terminal ileum, Colonic mucosa appeared normal in the ascending colon, cecum, transverse colon, and descending colon. Circumferential abnormal mucosa in the sigmoid colon and rectum. Mucosa appeared congested, edematous, erythematous, friable, ulcerated and had scarring and deep ulcers. Internal hemorrhoids. Pt reports Azathioprine dose was doubled after procedure. C-Difficile Colitis mild to moderate per CT scan with lower abdominal pain, intermittent, now having 10+ stools /day initally, no obvious bleeding CT abdomen and pelvis with IV contrast (01/05) noted --> Mild to moderate colitis involving transverse colon. There is no free air or free fluid. - Hx Hepatitis C- LFTs WNL, Hepatits Profile pending Anemia, HGB 12. stable without obvious bleeding, 20+ stools today with cramping Plan: Regular for now so patient has choice, asking for soup, soft foods minimal maintain some activity, dangle on side of bed. Oral Vancomycin Mesalamine rectally at at bedtime Asa calls 1600 mg every 8 hours Flagyl 500 mg IV every 6 hours Labs sedimentation rate, celiac disease although labs TSH Steroids 40 mg IV every 8 hours accurate I&O Probiotics Monitor labs Monitor for any rectal bleeding Further recommendations to follow based on symptoms Pt has been seen and examined by myself and Dr. Tarango and this note is written on her behalf (Mireya Shelton) Physician Comments seen, examined agree with above better in terms of pain, less diarrhea if not better consider flexisigmoidoscopy id consult (Linda Tarango MD) Mireya Shelton Jan 07, 2018 15:42 Linda Tarango MD Jan 07, 2018 19:17
[2018-01-07 16:00] VITALS: BP 113/73; PULSE 80; RESP 18; TEMP 96.7; O2SAT 98
[2018-01-07 20:00] VITALS: BP 108/65; PULSE 84; RESP 18; TEMP 97.8; O2SAT 96
[2018-01-07] MEDS: MESALAMINE 1000 MG SUPP RECTAL SCH (21:00)
[2018-01-07 21:21] LABS: MITOGEN MINUS NIL RESULT 8.45 IU/mL; NIL RESULT 0.06 IU/mL; QUANTIFERON TB GOLD RESULT Negative (Negative)
[2018-01-08] VITALS: BP 109/67; PULSE 75; RESP 18; TEMP 97.3; O2SAT 97
[2018-01-08] MEDS: MESALAMINE HD 800 MG DELAYED RELEASE TAB PO SCH ×4 (02:05→21:17)
[2018-01-08] MEDS: metroNIDAZOLE 500 MG INJ 100 ML IV SCH ×4 (03:38→21:12)
[2018-01-08] MEDS: SODIUM CHLOR 0.9% 1000 ML INJ 1,000 ML IV SCH ×2 (03:39→09:15)
[2018-01-08 05:22] LABS: BICARBONATE 24.9 MEQ/L (21.0-32.0); CALCIUM 8.6 MG/DL (8.5-10.1); CREATININE 0.63 MG/DL (0.60-1.30); MAGNESIUM 2.1 MG/DL (1.5-2.5)
[2018-01-08] MEDS: methylPREDNISolone SOD SUCC 40 MG/1 ML VIAL IV PUSH SCH ×3 (05:45→21:32)
[2018-01-08 08:00] VITALS: BP 90/77; PULSE 89; RESP 19; TEMP 97.8; O2SAT 98
[2018-01-08] MEDS: SODIUM CHLORIDE 0.9% FLUSH 10 ML FLUSH IV FLUSH SCH ×2 (09:00→21:19)
[2018-01-08] MEDS: CHOLESTYRAMINE 4 GM PACKET PO SCH ×2 (09:17→21:15)
[2018-01-08] MEDS: RIFAXIMIN 550 MG TAB PO SCH ×2 (09:18→21:17)
[2018-01-08] MEDS: LACTOBACILLUS ACIDOPHILUS TAB PO SCH ×2 (09:18→21:17)
[2018-01-08] MEDS: VANCOMYCIN 500 MG VIAL (FOR ORAL USE ONLY) PO SCH ×4 (09:21→21:14)
--- NOTE | 2018-01-08 09:52 | HHI.PR ---
Subjective Remarks Pt reports that he had 3-4 watery BMs overnight, none so far this morning Less abdominal pain today Afebrile Objective Vitals Vital Signs Date Time Temp Pulse Resp B/P (MAP) Pulse Ox O2 Delivery O2 Flow Rate FiO2 01/08/18 00:00 97.3 75 18 109/67 (81) 97 01/07/18 20:00 97.8 84 18 108/65 (79) 96 01/07/18 16:00 96.7 80 18 113/73 (86) 98 01/07/18 12:00 96.9 88 18 114/77 (89) 98 Result Diagram: 01/07/18 0544 01/08/18 0420 Other Results Laboratory Tests Test 01/07/18 05:44 01/07/18 12:25 01/08/18 04:20 White Blood Count 4.7 TH/MM3 Red Blood Count 4.11 MIL/MM3 Hemoglobin 12.7 GM/DL Hematocrit 37.0 % Mean Corpuscular Volume 90.1 FL Mean Corpuscular Hemoglobin 30.8 PG Mean Corpuscular Hemoglobin Concent 34.2 % Red Cell Distribution Width 15.5 % Platelet Count 368 TH/MM3 Mean Platelet Volume 6.9 FL Neutrophils (%) (Auto) 67.4 % Lymphocytes (%) (Auto) 14.6 % Monocytes (%) (Auto) 14.7 % Eosinophils (%) (Auto) 2.7 % Basophils (%) (Auto) 0.6 % Neutrophils # (Auto) 3.2 TH/MM3 Lymphocytes # (Auto) 0.7 TH/MM3 Monocytes # (Auto) 0.7 TH/MM3 Eosinophils # (Auto) 0.1 TH/MM3 Basophils # (Auto) 0.0 TH/MM3 CBC Comment DIFF FINAL Differential Comment Erythrocyte Sedimentation Rate 20 mm/hr Thyroid Stimulating Hormone 3rd Gen 1.630 uIU/ML Blood Urea Nitrogen 5 MG/DL Creatinine 0.63 MG/DL Random Glucose 137 MG/DL Calcium Level 8.6 MG/DL Magnesium Level 2.1 MG/DL Sodium Level 138 MEQ/L Potassium Level 4.1 MEQ/L Chloride Level 106 MEQ/L Carbon Dioxide Level 24.9 MEQ/L Anion Gap 7 MEQ/L Estimat Glomerular Filtration Rate 132 ML/MIN Imaging Last Impressions Abdomen/Pelvis CT 01/05/18 0851 Signed Impressions: Service Date/Time: Friday, January 05, 2018 12:33 - CONCLUSION: Mild to moderate colitis involving transverse colon There is no free air or free fluid . Alex Johnson MD FACR Objective Remarks General: NAD, AAOx3 Chest: CTA Cardiac: Regular Abd: +BS, soft ND/NT Ext: No edema A/P Problem List: (1) C. difficile diarrhea ICD Codes: A04.72 - Enterocolitis due to Clostridium difficile, not specified as recurrent Status: Acute Plan: C diff diarrhea - This is a 57 year old male patient with a past medical which includes chronic ulcerative colitis, DDD, hep C. Presented to GI for bloody diarrhea and underwent colonoscopy 01/01 consistent with UC flare. His Imuran was doubled and he was started on cipro/flagyl. The bloody diarrhea improved but he had persistent diarrhea. This prompted evaluation in the ED - Pt was found to have C.diff - CT Abd/pelvis --> Mild to moderate colitis involving transverse colon There is no free air or free fluid - Pt now on PO vanco/IV Flagyl/Questran - Pt was started on Rifaximin 550mg po BID, Asacol 1600mg po Q8H, Canasa supp HS , and Solu-Medrol 40mg Q8H on 01/07 per GI recommendations - Imuran on hold. - Stool studies are negative for enteric pathogens - Cont IVF Ulcerative colitis - See above - Pts home meds, Azathioprine 50mg PO BID and Balsalazide 750 mg PO TID, are on hold - Recent colonoscopy 01/01/18 --> Normal terminal ileum, colonic mucosa appeared normal in the ascending colon, cecum, transverse colon and descending colon, circumferential abnormal mucosa was found in the sigmoid colon and rectum. The mucosa was congested, edematous, erythematous, nodular, friable, ulcerated and had scarring and deep ulcers; multiple biopsies were performed. - CT abd/Pelvis reviewed and reveals: Mild to Moderate colitis involving transverse colon. There is no free air or free fluid. - GI requesting to send TB QuantaSure and hep b viral load in preparation for possible biologics (2) Ulcerative colitis ICD Codes: K51.90 - Ulcerative colitis, unspecified, without complications Status: Acute Assessment and Plan Patient examined. Assessment and plan formulated with Jaleesa Farley PA-C. I agree with the above. pt with uc flare and c diff colitis. major medication adjustments yesterday. no bm yet today and pain better. Jaleesa Farley Jan 08, 2018 09:52 Bg Wilkerson MD Jan 08, 2018 10:20
[2018-01-08 12:00] VITALS: BP 100/60; PULSE 90; RESP 20; TEMP 97; O2SAT 98
--- NOTE | 2018-01-08 15:39 | HHI.GIFU ---
Subjective Remarks resting in bed weak, no Abd. pain more controlled no facial grimace afebrile (Mireya Shelton) Objective Vitals I&O Vital Signs Date Time Temp Pulse Resp B/P (MAP) Pulse Ox O2 Delivery O2 Flow Rate FiO2 01/08/18 12:00 97.0 90 20 100/60 (73) 98 01/08/18 08:00 97.8 89 19 90/77 (81) 98 01/08/18 00:00 97.3 75 18 109/67 (81) 97 01/07/18 20:00 97.8 84 18 108/65 (79) 96 01/07/18 16:00 96.7 80 18 113/73 (86) 98 I/O 01/07/18 01/07/18 01/07/18 01/08/18 01/08/18 01/08/18 07:00 15:00 23:00 07:00 15:00 23:00 Intake Total 580 ml 200 ml 220 ml Balance 580 ml 200 ml 220 ml Intake Oral 480 ml 200 ml 120 ml IV Total 100 ml 100 ml # Voids 8 4 # Bowel Movements 3 3 4 Laboratory Laboratory Tests Test 01/08/18 04:20 Blood Urea Nitrogen 5 Creatinine 0.63 Random Glucose 137 Calcium Level 8.6 Magnesium Level 2.1 Sodium Level 138 Potassium Level 4.1 Chloride Level 106 Carbon Dioxide Level 24.9 Anion Gap 7 Estimat Glomerular Filtration Rate 132 Date/Time Source Procedure Growth Status 01/05/18 08:50 Stool Stool - Final NO ENTERIC PATHOGENS DETECTED BY PCR... Complete Imaging Last Impressions Abdomen/Pelvis CT 01/05/18 0851 Signed Impressions: Service Date/Time: Friday, January 05, 2018 12:33 - CONCLUSION: Mild to moderate colitis involving transverse colon There is no free air or free fluid . Alex Johnson MD FACR Physical Exam HEENT: Pupils round and reactive to light; normocephalic; atraumatic; pale. oral moist. NECK: Neck is supple, no JVD, no lymphadenopathy. CHEST: Chest is clear, low volumes CARDIAC: Regular rate and rhythm ABDOMEN: flat, soft, no bloating, obvious cramping, improved LLQ tenderness, bowel sounds active EXTREMITIES: No clubbing, cyanosis, or edema. SKIN: pale, jackie; no rash; no jaundice. 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 (Mireya Shelton) Assessment and Plan Plan Assessment: Hisltory - Chronic UC, managed outpatient with Azathioprine 100mg daily and Balsalazide 750mg daily. Recently evaluated in office for blood diarrhea, given one week prescription of Cipro and Flagyl Colonoscopy (01/01/18) --> Normal terminal ileum, Colonic mucosa appeared normal in the ascending colon, cecum, transverse colon, and descending colon. Circumferential abnormal mucosa in the sigmoid colon and rectum. Mucosa appeared congested, edematous, erythematous, friable, ulcerated and had scarring and deep ulcers. Internal hemorrhoids. Pt reports Azathioprine dose was doubled after procedure. C-Difficile Colitis mild to moderate per CT scan with lower abdominal pain, intermittent, now having 10+ stools /day initally, no obvious bleeding CT abdomen and pelvis with IV contrast (01/05) noted --> Mild to moderate colitis involving transverse colon. There is no free air or free fluid. - Hx Hepatitis C- LFTs WNL, Hepatits Profile pending Anemia, HGB 12.7, Loose stools X 2 today. Abd. cramping resolving Plan: Regular for now so patient has choice, asking for soup, soft foods minimal, decreased appetite OOB , dangle to maintain strength Oral Vancomycin Mesalamine rectally /pt refused. Will still offer for now. Asa calls 1600 mg every 8 hours Flagyl 500 mg IV every 6 hours Steroids 40 mg IV every 8 hours accurate I&O labs pending Probiotics Monitor labs/HGB Monitor for any rectal bleeding Further recommendations to follow based on symptoms Pt has been seen and examined by myself and Dr. Tarango and this note is written on her behalf (Mireya Shelton) Physician Comments seen, examined agree with above slowly improving (Linda Tarango MD) Mireya Shelton Jan 08, 2018 15:39 Linda Tarango MD Jan 08, 2018 17:24
[2018-01-08 16:00] VITALS: BP 127/75; PULSE 80; RESP 19; TEMP 96.9; O2SAT 100
[2018-01-08 20:00] VITALS: BP 100/54; PULSE 96; RESP 20; TEMP 98.5; O2SAT 97
[2018-01-08] MEDS: MESALAMINE 1000 MG SUPP RECTAL SCH (21:00)
[2018-01-09] VITALS: BP 107/64; PULSE 68; RESP 18; TEMP 97.4; O2SAT 98
[2018-01-09] MEDS: metroNIDAZOLE 500 MG INJ 100 ML IV SCH ×4 (02:19→22:03)
[2018-01-09] MEDS: SODIUM CHLOR 0.9% 1000 ML INJ 1,000 ML IV SCH ×3 (02:19→22:12)
[2018-01-09 03:50] LABS: HEP B DNA R1 LESS THAN 20 IU/mL (Not Detected); HEP B DNA R2 LESS THAN 1.30 (Not Detected)
[2018-01-09 05:21] LABS: AUTOMATED NEUTROPHIL # 6.4 TH/MM3 (1.8-7.7); BASOPHIL % 0.2 % (0.0-2.0); EOSINOPHIL % 0.1 % (0.0-4.0); HEMOGLOBIN 11.8 GM/DL (13.0-17.0); LYMPH % 7.7 % (9.0-44.0); LYMPHOCYTE # 0.6 TH/MM3 (1.0-4.8); MEAN CORPUSCULAR HEMOGLOBIN 31.2 PG (27.0-34.0); MEAN CORPUSCULAR HGB CONC 34.6 % (32.0-36.0); MONO % 7.9 % (0.0-8.0); MONOCYTE # 0.6 TH/MM3 (0-0.9); NEUT % 84.1 % (16.0-70.0); PLATELET COUNT 396 TH/MM3 (150-450); RED BLOOD COUNT 3.78 MIL/MM3 (4.50-5.90); RED CELL DISTRIBUTION WIDTH 15.6 % (11.6-17.2); WHITE BLOOD COUNT 7.6 TH/MM3 (4.0-11.0)
[2018-01-09 05:47] LABS: BICARBONATE 24.7 MEQ/L (21.0-32.0); CALCIUM 8.3 MG/DL (8.5-10.1); CREATININE 0.62 MG/DL (0.60-1.30); MAGNESIUM 2.3 MG/DL (1.5-2.5)
[2018-01-09] MEDS: MESALAMINE HD 800 MG DELAYED RELEASE TAB PO SCH ×3 (06:20→22:04)
[2018-01-09] MEDS: methylPREDNISolone SOD SUCC 40 MG/1 ML VIAL IV PUSH SCH ×2 (06:20→13:30)
[2018-01-09 08:00] VITALS: BP 101/59; PULSE 74; RESP 19; TEMP 96.5; O2SAT 98
[2018-01-09 08:30] VITALS: BP 100/54; PULSE 96; RESP 20; TEMP 98.5; O2SAT 97
[2018-01-09] MEDS: RIFAXIMIN 550 MG TAB PO SCH ×2 (09:05→22:03)
[2018-01-09] MEDS: LACTOBACILLUS ACIDOPHILUS TAB PO SCH ×2 (09:06→22:03)
[2018-01-09] MEDS: VANCOMYCIN 500 MG VIAL (FOR ORAL USE ONLY) PO SCH ×4 (09:07→22:05)
[2018-01-09] MEDS: SODIUM CHLORIDE 0.9% FLUSH 10 ML FLUSH IV FLUSH SCH ×2 (09:07→22:06)
[2018-01-09] MEDS: CHOLESTYRAMINE 4 GM PACKET PO SCH ×2 (09:07→22:05)
--- NOTE | 2018-01-09 09:21 | HHI.PR ---
Subjective Remarks Pt reports that he had 4-5 BMs overnight and 3 so far this morning His stools are starting to have more consistency, described as "mushy" today Afebrile Objective Vitals Vital Signs Date Time Temp Pulse Resp B/P (MAP) Pulse Ox O2 Delivery O2 Flow Rate FiO2 01/09/18 08:00 96.5 74 19 101/59 (73) 98 01/09/18 00:00 97.4 68 18 107/64 (78) 98 01/08/18 20:00 98.5 96 20 100/54 (69) 97 01/08/18 16:00 96.9 80 19 127/75 (92) 100 01/08/18 12:00 97.0 90 20 100/60 (73) 98 Result Diagram: 01/09/18 0446 01/09/186 Other Results Laboratory Tests Test 01/07/18 12:25 01/08/18 04:20 01/09/18 04:46 Thyroid Stimulating Hormone 3rd Gen 1.630 uIU/ML Blood Urea Nitrogen 5 MG/DL 9 MG/DL Creatinine 0.63 MG/DL 0.62 MG/DL Random Glucose 137 MG/DL 129 MG/DL Calcium Level 8.6 MG/DL 8.3 MG/DL Magnesium Level 2.1 MG/DL 2.3 MG/DL Sodium Level 138 MEQ/L 139 MEQ/L Potassium Level 4.1 MEQ/L 4.2 MEQ/L Chloride Level 106 MEQ/L 106 MEQ/L Carbon Dioxide Level 24.9 MEQ/L 24.7 MEQ/L Anion Gap 7 MEQ/L 8 MEQ/L Estimat Glomerular Filtration Rate 132 ML/MIN 135 ML/MIN White Blood Count 7.6 TH/MM3 Red Blood Count 3.78 MIL/MM3 Hemoglobin 11.8 GM/DL Hematocrit 34.0 % Mean Corpuscular Volume 90.0 FL Mean Corpuscular Hemoglobin 31.2 PG Mean Corpuscular Hemoglobin Concent 34.6 % Red Cell Distribution Width 15.6 % Platelet Count 396 TH/MM3 Mean Platelet Volume 7.0 FL Neutrophils (%) (Auto) 84.1 % Lymphocytes (%) (Auto) 7.7 % Monocytes (%) (Auto) 7.9 % Eosinophils (%) (Auto) 0.1 % Basophils (%) (Auto) 0.2 % Neutrophils # (Auto) 6.4 TH/MM3 Lymphocytes # (Auto) 0.6 TH/MM3 Monocytes # (Auto) 0.6 TH/MM3 Eosinophils # (Auto) 0.0 TH/MM3 Basophils # (Auto) 0.0 TH/MM3 CBC Comment DIFF FINAL Differential Comment Imaging Last Impressions Abdomen/Pelvis CT 01/05/18 0851 Signed Impressions: Service Date/Time: Friday, January 05, 2018 12:33 - CONCLUSION: Mild to moderate colitis involving transverse colon There is no free air or free fluid . Alex Johnson MD FACR Objective Remarks General: NAD, AAOx3 Chest: CTA Cardiac: Regular Abd: +BS, soft ND/NT Ext: No edema A/P Problem List: (1) C. difficile diarrhea ICD Codes: A04.72 - Enterocolitis due to Clostridium difficile, not specified as recurrent Status: Acute Plan: C diff diarrhea - This is a 57 year old male patient with a past medical which includes chronic ulcerative colitis, DDD, hep C. Presented to GI for bloody diarrhea and underwent colonoscopy 01/01 consistent with UC flare. His Imuran was doubled and he was started on cipro/flagyl. The bloody diarrhea improved but he had persistent diarrhea. This prompted evaluation in the ED - Pt was found to have C.diff - CT Abd/pelvis --> Mild to moderate colitis involving transverse colon There is no free air or free fluid - Pt now on PO vanco/IV Flagyl/Questran - Pt was started on Rifaximin 550mg po BID, Asacol 1600mg po Q8H, Canasa supp HS , and Solu-Medrol 40mg Q8H on 01/07 per GI recommendations - Imuran on hold. - Stools are starting to form up slightly but still has had 8-9 BMs in the last 12 hours - Stool studies are negative for enteric pathogens - Cont IVF Ulcerative colitis - See above - Pts home meds, Azathioprine 50mg PO BID and Balsalazide 750 mg PO TID, are on hold - Recent colonoscopy 01/01/18 --> Normal terminal ileum, colonic mucosa appeared normal in the ascending colon, cecum, transverse colon and descending colon, circumferential abnormal mucosa was found in the sigmoid colon and rectum. The mucosa was congested, edematous, erythematous, nodular, friable, ulcerated and had scarring and deep ulcers; multiple biopsies were performed. - CT abd/Pelvis reviewed and reveals: Mild to Moderate colitis involving transverse colon. There is no free air or free fluid. - GI requesting to send TB QuantaSure and hep b viral load in preparation for possible biologics (2) Ulcerative colitis ICD Codes: K51.90 - Ulcerative colitis, unspecified, without complications Status: Acute Assessment and Plan Patient examined. Assessment and plan formulated with Jaleesa Farley PA-C. I agree with the above. UC flare. c.diff colitis. overall improved diarrhea but more today. cont rx. pt hoping for dc soon. will await further GI input. Jaleesa Farley Jan 09, 2018 09:20 Bg Wilkerson MD Jan 09, 2018 11:36
[2018-01-09 12:00] VITALS: BP 98/61; PULSE 76; RESP 18; TEMP 97.5; O2SAT 98
--- NOTE | 2018-01-09 14:35 | HHI.GIFU ---
Subjective Remarks Sitting up in the bed more alert today, facial color improved Able to keep down soft foods Stools have began to thicken up today, patient notes 3 or 4X today so far Abdominal pain improving, still waxes and wanes Afebrile (Mireya Shelton) Objective Vitals I&O Vital Signs Date Time Temp Pulse Resp B/P (MAP) Pulse Ox O2 Delivery O2 Flow Rate FiO2 01/09/18 12:00 97.5 76 18 98/61 (73) 98 01/09/18 08:00 96.5 74 19 101/59 (73) 98 01/09/18 00:00 97.4 68 18 107/64 (78) 98 01/08/18 20:00 98.5 96 20 100/54 (69) 97 01/08/18 16:00 96.9 80 19 127/75 (92) 100 I/O 01/08/18 01/08/18 01/08/18 01/09/18 01/09/18 01/09/18 07:00 15:00 23:00 07:00 15:00 23:00 Intake Total 200 ml 320 ml 1000 ml 360 ml Output Total 1000 ml Balance 200 ml 320 ml 0 ml 360 ml Intake Oral 200 ml 120 ml 1000 ml 360 ml IV Total 200 ml Output Urine Total 1000 ml # Voids 4 3 # Bowel Movements 4 2 3 Laboratory Laboratory Tests Test 01/09/18 04:46 White Blood Count 7.6 Red Blood Count 3.78 Hemoglobin 11.8 Hematocrit 34.0 Mean Corpuscular Volume 90.0 Mean Corpuscular Hemoglobin 31.2 Mean Corpuscular Hemoglobin Concent 34.6 Red Cell Distribution Width 15.6 Platelet Count 396 Mean Platelet Volume 7.0 Neutrophils (%) (Auto) 84.1 Lymphocytes (%) (Auto) 7.7 Monocytes (%) (Auto) 7.9 Eosinophils (%) (Auto) 0.1 Basophils (%) (Auto) 0.2 Neutrophils # (Auto) 6.4 Lymphocytes # (Auto) 0.6 Monocytes # (Auto) 0.6 Eosinophils # (Auto) 0.0 Basophils # (Auto) 0.0 CBC Comment DIFF FINAL Differential Comment Blood Urea Nitrogen 9 Creatinine 0.62 Random Glucose 129 Calcium Level 8.3 Magnesium Level 2.3 Sodium Level 139 Potassium Level 4.2 Chloride Level 106 Carbon Dioxide Level 24.7 Anion Gap 8 Estimat Glomerular Filtration Rate 135 Date/Time Source Procedure Growth Status 01/05/18 08:50 Stool Stool - Final NO ENTERIC PATHOGENS DETECTED BY PCR... Complete Imaging Last Impressions Abdomen/Pelvis CT 01/05/18 0838 Signed Impressions: Service Date/Time: Friday, January 05, 2018 12:33 - CONCLUSION: Mild to moderate colitis involving transverse colon There is no free air or free fluid . Alex Johnson MD FACR Physical Exam HEENT: Pupils round and reactive to light; normocephalic; atraumatic; pink or facial color. oral moist. NECK: Neck is supple, no JVD, no lymphadenopathy. CHEST: Chest is clear without rhonchi CARDIAC: Regular rate and rhythm ABDOMEN: flat, soft, no bloating, generalized left lower quadrant abdominal pain mild, bowel sounds active EXTREMITIES: No clubbing, cyanosis, or edema. SKIN: pink, no rash; no jaundice. 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 (Mireya Shelton) Assessment and Plan Plan Assessment: Hisltory - Chronic UC, managed outpatient with Azathioprine 100mg daily and Balsalazide 750mg daily. Recently evaluated in office for blood diarrhea, given one week prescription of Cipro and Flagyl Colonoscopy (01/01/18) --> Normal terminal ileum, Colonic mucosa appeared normal in the ascending colon, cecum, transverse colon, and descending colon. Circumferential abnormal mucosa in the sigmoid colon and rectum. Mucosa appeared congested, edematous, erythematous, friable, ulcerated and had scarring and deep ulcers. Internal hemorrhoids. Pt reports Azathioprine dose was doubled after procedure. C-Difficile Colitis mild to moderate per CT scan with lower abdominal pain, intermittent, now having 10+ stools /day initally, no obvious bleeding CT abdomen and pelvis with IV contrast (01/05) noted --> Mild to moderate colitis involving transverse colon. There is no free air or free fluid. - Hx Hepatitis C- LFTs WNL, Hepatits Profile pending Anemia, HGB 12. 8 no obvious bleeding, nausea and left lower quadrant abdominal pain continues to improve, stools have some thicker consistency today 3-4 times BM today. Today patient is able to sit up in bed in conversation. Continue to encourage hydration and nutrition. Decrease steroids to 40 mg IV every 12, patient denies any rectal bleeding Plan: Regular, patient tolerating increased different foods today no nausea vomiting Some of his labs are still pending; IgA, AB titer, trans-gluten IgG, tissue trans-gluten IgA Hep. B DNA less than 1.3, Hep B DNA units per cc less than 20, QFT Gold negative, QFT test 0.06, Test Mitogen 8.45, test antigen 0 Encourage activity Oral Vancomycin Mesalamine rectal at at bedtime patient continues to refuse Asa calls 1600 mg every 8 hours Flagyl 500 mg IV every 6 hours, will consider transitioning IV to by mouth within the next 24 hours Decrease Steroids to 40 mg IV every 12h hours I&O labs pending Probiotics Monitor labs/HGB Further recommendations to follow based on symptoms. Pt has been seen and examined by myself and Dr. Tarango and this note is written on her behalf (Mireya Shelton) Physician Comments seen, examined agree with above (Linda Tarango MD) Mireya Shelton Jan 09, 2018 14:35 Linda Tarango MD Jan 09, 2018 20:57
[2018-01-09 16:00] VITALS: BP 109/67; PULSE 69; RESP 19; TEMP 97.7; O2SAT 98
[2018-01-09 19:54] LABS: ENDOMYSIAL AB SCREEN ND (NEGATIVE); ENDOMYSIAL AB TITER ND (<1:5)
[2018-01-09 20:00] VITALS: BP 116/75; PULSE 76; RESP 20; TEMP 97.4; O2SAT 97
[2018-01-09] MEDS: MESALAMINE 1000 MG SUPP RECTAL SCH (21:00)
[2018-01-10] VITALS: BP 109/64; PULSE 66; RESP 20; TEMP 96.9; O2SAT 98
[2018-01-10] MEDS: metroNIDAZOLE 500 MG INJ 100 ML IV SCH ×4 (02:04→22:24)
[2018-01-10] MEDS: methylPREDNISolone SOD SUCC 40 MG/1 ML VIAL IV PUSH SCH ×2 (02:05→12:20)
[2018-01-10] MEDS: MESALAMINE HD 800 MG DELAYED RELEASE TAB PO SCH ×3 (06:03→22:48)
[2018-01-10 08:00] VITALS: BP 110/68; PULSE 67; RESP 16; TEMP 96.3; O2SAT 98
[2018-01-10] MEDS: SODIUM CHLORIDE 0.9% FLUSH 10 ML FLUSH IV FLUSH SCH ×2 (08:02→22:25)
[2018-01-10] MEDS: VANCOMYCIN 500 MG VIAL (FOR ORAL USE ONLY) PO SCH ×4 (08:05→22:23)
[2018-01-10] MEDS: CHOLESTYRAMINE 4 GM PACKET PO SCH ×2 (08:05→22:24)
[2018-01-10] MEDS: RIFAXIMIN 550 MG TAB PO SCH ×2 (08:05→22:24)
[2018-01-10] MEDS: LACTOBACILLUS ACIDOPHILUS TAB PO SCH ×2 (08:05→22:24)
[2018-01-10] MEDS: SODIUM CHLOR 0.9% 1000 ML INJ 1,000 ML IV SCH (08:06)
--- NOTE | 2018-01-10 09:31 | HHI.PR ---
Subjective Remarks Pt had 3-4 BMs overnight and 2 this morning Slightly blood tinged but improving Consistency of stools is still very soft but not watery Objective Vitals Vital Signs Date Time Temp Pulse Resp B/P (MAP) Pulse Ox O2 Delivery O2 Flow Rate FiO2 01/10/18 08:00 96.3 67 16 110/68 (82) 98 01/10/18 00:00 96.9 66 20 109/64 (79) 98 01/09/18 20:00 97.4 76 20 116/75 (89) 97 01/09/18 16:00 97.7 69 19 109/67 (81) 98 01/09/18 12:00 97.5 76 18 98/61 (73) 98 Result Diagram: 01/09/18 0446 01/09/186 Other Results Laboratory Tests Test 01/09/18 04:46 White Blood Count 7.6 TH/MM3 Red Blood Count 3.78 MIL/MM3 Hemoglobin 11.8 GM/DL Hematocrit 34.0 % Mean Corpuscular Volume 90.0 FL Mean Corpuscular Hemoglobin 31.2 PG Mean Corpuscular Hemoglobin Concent 34.6 % Red Cell Distribution Width 15.6 % Platelet Count 396 TH/MM3 Mean Platelet Volume 7.0 FL Neutrophils (%) (Auto) 84.1 % Lymphocytes (%) (Auto) 7.7 % Monocytes (%) (Auto) 7.9 % Eosinophils (%) (Auto) 0.1 % Basophils (%) (Auto) 0.2 % Neutrophils # (Auto) 6.4 TH/MM3 Lymphocytes # (Auto) 0.6 TH/MM3 Monocytes # (Auto) 0.6 TH/MM3 Eosinophils # (Auto) 0.0 TH/MM3 Basophils # (Auto) 0.0 TH/MM3 CBC Comment DIFF FINAL Differential Comment Blood Urea Nitrogen 9 MG/DL Creatinine 0.62 MG/DL Random Glucose 129 MG/DL Calcium Level 8.3 MG/DL Magnesium Level 2.3 MG/DL Sodium Level 139 MEQ/L Potassium Level 4.2 MEQ/L Chloride Level 106 MEQ/L Carbon Dioxide Level 24.7 MEQ/L Anion Gap 8 MEQ/L Estimat Glomerular Filtration Rate 135 ML/MIN Imaging Last Impressions Abdomen/Pelvis CT 01/05/18 0851 Signed Impressions: Service Date/Time: Friday, January 05, 2018 12:33 - CONCLUSION: Mild to moderate colitis involving transverse colon There is no free air or free fluid . Alex Johnson MD FACR Objective Remarks General: NAD, AAOx3 Chest: CTA Cardiac: Regular Abd: +BS, soft ND/NT Ext: No edema A/P Problem List: (1) C. difficile diarrhea ICD Codes: A04.72 - Enterocolitis due to Clostridium difficile, not specified as recurrent Status: Acute Plan: C diff diarrhea - This is a 57 year old male patient with a past medical which includes chronic ulcerative colitis, DDD, hep C. Presented to GI for bloody diarrhea and underwent colonoscopy 01/01 consistent with UC flare. His Imuran was doubled and he was started on cipro/flagyl. The bloody diarrhea improved but he had persistent diarrhea. This prompted evaluation in the ED - Pt was found to have C.diff - CT Abd/pelvis --> Mild to moderate colitis involving transverse colon There is no free air or free fluid - Pt now on PO vanco/IV Flagyl/Questran - Pt was started on Rifaximin 550mg po BID, Asacol 1600mg po Q8H, Canasa supp HS , and Solu-Medrol 40mg Q8H on 01/07 per GI recommendations - Imuran on hold. - Steroids deescalated to 40mg IV Q12H on 01/09. - Pt has been refusing Canasa Supp - GI considering changing Flagyl to PO today. - Stool studies are negative for enteric pathogens Ulcerative colitis - See above - Pts home meds, Azathioprine 50mg PO BID and Balsalazide 750 mg PO TID, are on hold - Recent colonoscopy 01/01/18 --> Normal terminal ileum, colonic mucosa appeared normal in the ascending colon, cecum, transverse colon and descending colon, circumferential abnormal mucosa was found in the sigmoid colon and rectum. The mucosa was congested, edematous, erythematous, nodular, friable, ulcerated and had scarring and deep ulcers; multiple biopsies were performed. - CT abd/Pelvis reviewed and reveals: Mild to Moderate colitis involving transverse colon. There is no free air or free fluid. - TB QuantaSure was negative and hep b viral load was negative in preparation for possible biologics (2) Ulcerative colitis ICD Codes: K51.90 - Ulcerative colitis, unspecified, without complications Status: Acute Assessment and Plan Patient examined. Assessment and plan formulated with Jaleesa Farley PA-C. I agree with the above. uc flare. c.diff colitis. overall improved d/c when ok with gi. cont rx. Jaleesa Farley Jan 10, 2018 09:31 Bg Wilkerson MD Jan 10, 2018 17:07
[2018-01-10 12:00] VITALS: BP 102/58; PULSE 75; RESP 16; TEMP 97.9; O2SAT 97
[2018-01-10 16:00] VITALS: BP 98/65; PULSE 88; RESP 15; TEMP 97.9; O2SAT 98
--- NOTE | 2018-01-10 16:13 | HHI.GIFU ---
Subjective Remarks Pt resting in bed reading the newspaper. Reports stools are semi-formed, some blood tinged in them today. 3 BMs so far today. Denies abdominal pain, nausea , vomiting. Tolerating diet. (Michell Ingram) Objective Vitals I&O Vital Signs Date Time Temp Pulse Resp B/P (MAP) Pulse Ox O2 Delivery O2 Flow Rate FiO2 01/10/18 12:00 97.9 75 16 102/58 (73) 97 01/10/18 08:00 96.3 67 16 110/68 (82) 98 01/10/18 00:00 96.9 66 20 109/64 (79) 98 01/09/18 20:00 97.4 76 20 116/75 (89) 97 I/O 01/09/18 01/09/18 01/09/18 01/10/18 01/10/18 01/10/18 07:00 15:00 23:00 07:00 15:00 23:00 Intake Total 360 ml 2 ml 1722 ml 560 ml Balance 360 ml 2 ml 1722 ml 560 ml Intake Oral 360 ml 620 ml 360 ml IV Total 2 ml 1102 ml 200 ml # Voids 3 5 2 # Bowel Movements 3 6 1 Laboratory Date/Time Source Procedure Growth Status 01/05/18 08:50 Stool Stool - Final NO ENTERIC PATHOGENS DETECTED BY PCR... Complete Imaging Last Impressions Abdomen/Pelvis CT 01/05/18 0851 Signed Impressions: Service Date/Time: Friday, January 05, 2018 12:33 - CONCLUSION: Mild to moderate colitis involving transverse colon There is no free air or free fluid . Alex Johnson MD FACR Physical Exam HEENT: Normocephalic; atraumatic CHEST: Even/unlabored CARDIAC: RRR ABDOMEN: Soft, nondistended, nontender, bowel sounds active EXTREMITIES: No clubbing, cyanosis, or edema. SKIN: Normal MEDICAL ECONOMICS CONSULTANT: No focal deficits; awake, oriented times three. (Michell Ingram) Assessment and Plan Plan Assessment: Hisltory - Chronic UC, managed outpatient with Azathioprine 100mg daily and Balsalazide 750mg daily. Recently evaluated in office for blood diarrhea, given one week prescription of Cipro and Flagyl Finished abx prior to colonoscopy. Colonoscopy (01/01/18) --> Normal terminal ileum, Colonic mucosa appeared normal in the ascending colon, cecum, transverse colon, and descending colon, biopsies obtained every 10cm, circumferential abnormal mucosa in the sigmoid colon and rectum. Mucosa appeared congested, edematous, erythematous, friable, ulcerated and had scarring and deep ulcers. Internal hemorrhoids. Pt reports Azathioprine dose was doubled after procedure. Presented to ER today with complaints of lower abdominal pain, intermittent, not associated with BMs and uncontrollable diarrhea. Reports 30 episodes a day, now with fecal incontinence. Denies continuation of blood in stool. C diff toxin PCR positive, epid negative. Denies history of C. Diff. Reports possible fever Friday morning. Denies recent travel, recent abx other than those previously mentioned. CT abdomen and pelvis with IV contrast (01/05) noted --> Mild to moderate colitis involving transverse colon. There is no free air or free fluid. - Hx Hepatitis C- LFTs WNL (01/10) --> Improvement in BMs, semi-formed, 3 so far today, small amount of blood but reports overall improvement. Denies abdominal pain. No repeat labs from today. On Solumedrol, Mesalamine PO (pt refusing rectal), Rifaximin, IV Flagyl, oral Vanco, cholestyramine, probiotics. TB and Hep B testing complete for biologics to be started. Plan: IKER Solumedrol Mesalamine Rifaximin Flagyl Vanco Cholestyramine Probiotics Recheck CBC DC tentatively early in the week if continues to improve Pt has been seen and examined by myself and Dr. Dickens and this note is written on his behalf (Michell Ingram) Physician Comments Patient seen and examined Agree with above Continue with current supportive care Monitor labs (Landry Dickens MD) Michell Ingram Jan 10, 2018 16:13 Landry Dickens MD Jan 10, 2018 23:42
[2018-01-10 19:56] VITALS: O2SAT 98
[2018-01-10 20:00] VITALS: BP 112/66; PULSE 77; RESP 16; TEMP 97.7; O2SAT 98
[2018-01-10] MEDS: MESALAMINE 1000 MG SUPP RECTAL SCH (21:00)
[2018-01-11] VITALS: BP 122/79; PULSE 72; RESP 18; TEMP 97.7; O2SAT 97
[2018-01-11] MEDS: metroNIDAZOLE 500 MG INJ 100 ML IV SCH ×4 (03:50→22:39)
[2018-01-11] MEDS: methylPREDNISolone SOD SUCC 40 MG/1 ML VIAL IV PUSH SCH ×2 (03:51→12:56)
[2018-01-11 06:13] LABS: AUTOMATED NEUTROPHIL # 6.5 TH/MM3 (1.8-7.7); BASOPHIL # 0.1 TH/MM3 (0-0.2); BASOPHIL % 0.8 % (0.0-2.0); EOSINOPHIL % 0.3 % (0.0-4.0); HEMATOCRIT 35.5 % (39.0-51.0); HEMOGLOBIN 12.3 GM/DL (13.0-17.0); LYMPH % 18.7 % (9.0-44.0); LYMPHOCYTE # 1.8 TH/MM3 (1.0-4.8); MEAN CELL VOLUME 89.4 FL (80.0-100.0); MEAN CORPUSCULAR HEMOGLOBIN 30.8 PG (27.0-34.0); MEAN CORPUSCULAR HGB CONC 34.5 % (32.0-36.0); MONO % 12.1 % (0.0-8.0); MONOCYTE # 1.1 TH/MM3 (0-0.9); NEUT % 68.1 % (16.0-70.0); PLATELET COUNT 401 TH/MM3 (150-450); RED BLOOD COUNT 3.97 MIL/MM3 (4.50-5.90); RED CELL DISTRIBUTION WIDTH 15.8 % (11.6-17.2); WHITE BLOOD COUNT 9.5 TH/MM3 (4.0-11.0)
[2018-01-11 06:34] LABS: BICARBONATE 25.4 MEQ/L (21.0-32.0); CALCIUM 7.9 MG/DL (8.5-10.1); CREATININE 0.69 MG/DL (0.60-1.30); MAGNESIUM 2.2 MG/DL (1.5-2.5)
[2018-01-11] MEDS: MESALAMINE HD 800 MG DELAYED RELEASE TAB PO SCH ×3 (06:34→22:52)
[2018-01-11 08:00] VITALS: BP 113/75; PULSE 71; RESP 16; TEMP 96.8; O2SAT 98
[2018-01-11] MEDS: SODIUM CHLORIDE 0.9% FLUSH 10 ML FLUSH IV FLUSH SCH ×2 (08:22→22:40)
[2018-01-11] MEDS: LACTOBACILLUS ACIDOPHILUS TAB PO SCH ×2 (08:22→22:39)
[2018-01-11] MEDS: CHOLESTYRAMINE 4 GM PACKET PO SCH ×2 (08:22→22:40)
[2018-01-11] MEDS: VANCOMYCIN 500 MG VIAL (FOR ORAL USE ONLY) PO SCH ×4 (08:22→22:40)
[2018-01-11] MEDS: RIFAXIMIN 550 MG TAB PO SCH ×2 (08:22→22:39)
[2018-01-11 12:00] VITALS: BP 86/55; PULSE 101; RESP 15; TEMP 97.3; O2SAT 98
--- NOTE | 2018-01-11 12:16 | HHI.GIFU ---
Subjective Remarks Pt resting in bed. Anxious and hopeful to be discharged tomorrow. BMs continue to improve. Denies nausea, vomiting abdominal pain. (Michell Ingram) Objective Vitals I&O Vital Signs Date Time Temp Pulse Resp B/P (MAP) Pulse Ox O2 Delivery O2 Flow Rate FiO2 01/11/18 08:00 96.8 71 16 113/75 (88) 98 01/11/18 00:00 97.7 72 18 122/79 (93) 97 01/10/18 20:00 97.7 77 16 112/66 (81) 98 01/10/18 19:56 98 21 01/10/18 16:00 97.9 88 15 98/65 (76) 98 I/O 01/10/18 01/10/18 01/10/18 01/11/18 01/11/18 01/11/18 07:00 15:00 23:00 07:00 15:00 23:00 Intake Total 560 ml 1200 ml 560 ml Balance 560 ml 1200 ml 560 ml Intake Oral 360 ml 1200 ml 360 ml IV Total 200 ml 200 ml # Voids 2 4 3 # Bowel Movements 1 0 2 Laboratory Laboratory Tests Test 01/11/18 05:14 White Blood Count 9.5 Red Blood Count 3.97 Hemoglobin 12.3 Hematocrit 35.5 Mean Corpuscular Volume 89.4 Mean Corpuscular Hemoglobin 30.8 Mean Corpuscular Hemoglobin Concent 34.5 Red Cell Distribution Width 15.8 Platelet Count 401 Mean Platelet Volume 7.0 Neutrophils (%) (Auto) 68.1 Lymphocytes (%) (Auto) 18.7 Monocytes (%) (Auto) 12.1 Eosinophils (%) (Auto) 0.3 Basophils (%) (Auto) 0.8 Neutrophils # (Auto) 6.5 Lymphocytes # (Auto) 1.8 Monocytes # (Auto) 1.1 Eosinophils # (Auto) 0.0 Basophils # (Auto) 0.1 CBC Comment DIFF FINAL Differential Comment Blood Urea Nitrogen 11 Creatinine 0.69 Random Glucose 87 Calcium Level 7.9 Magnesium Level 2.2 Sodium Level 140 Potassium Level 3.8 Chloride Level 107 Carbon Dioxide Level 25.4 Anion Gap 8 Estimat Glomerular Filtration Rate 119 Date/Time Source Procedure Growth Status 01/05/18 08:50 Stool Stool - Final NO ENTERIC PATHOGENS DETECTED BY PCR... Complete Imaging Last Impressions Abdomen/Pelvis CT 2/5/18 0851 Signed Impressions: Service Date/Time: Friday, January 05, 2018 12:33 - CONCLUSION: Mild to moderate colitis involving transverse colon There is no free air or free fluid . Alex Johnson MD FACR Physical Exam HEENT: Normocephalic; atraumatic CHEST: Even/unlabored CARDIAC: RRR ABDOMEN: Soft, nondistended, nontender, bowel sounds active EXTREMITIES: No clubbing, cyanosis, or edema. SKIN: Normal DIRECTOR OF EVENT SALES: No focal deficits; awake, oriented times three. (Michell Ingram ELIGIBILITY MANAGER) Assessment and Plan Plan Assessment: Hisltory - Chronic UC, managed outpatient with Azathioprine 100mg daily and Balsalazide 750mg daily. Recently evaluated in office for blood diarrhea, given one week prescription of Cipro and Flagyl Finished abx prior to colonoscopy. Colonoscopy (01/01/18) --> Normal terminal ileum, Colonic mucosa appeared normal in the ascending colon, cecum, transverse colon, and descending colon, biopsies obtained every 10cm, circumferential abnormal mucosa in the sigmoid colon and rectum. Mucosa appeared congested, edematous, erythematous, friable, ulcerated and had scarring and deep ulcers. Internal hemorrhoids. Pt reports Azathioprine dose was doubled after procedure. Presented to ER today with complaints of lower abdominal pain, intermittent, not associated with BMs and uncontrollable diarrhea. Reports 30 episodes a day, now with fecal incontinence. Denies continuation of blood in stool. C diff toxin PCR positive, epid negative. Denies history of C. Diff. Reports possible fever Friday morning. Denies recent travel, recent abx other than those previously mentioned. CT abdomen and pelvis with IV contrast (01/05) noted --> Mild to moderate colitis involving transverse colon. There is no free air or free fluid. - Hx Hepatitis C- LFTs WNL (01/10) --> Improvement in BMs, semi-formed, 3 so far today, small amount of blood but reports overall improvement. Denies abdominal pain. No repeat labs from today. On Solumedrol, Mesalamine PO (pt refusing rectal), Rifaximin, IV Flagyl, oral Vanco, cholestyramine, probiotics. TB and Hep B testing complete for biologics to be started. (01/11) --> Pt continue to improve. Very anxious and hopeful to be going home tomorrow. Remains on same medication as previously listed. Mild improvement in H/H today. Plan: IKER Solumedrol Mesalamine Rifaximin Flagyl Vanco Cholestyramine Probiotics Recheck CBC DC tentatively early in the week if continues to improve Pt has been seen and examined by myself and Dr. Dickens and this note is written on his behalf (Michell Ingram) Physician Comments patient seen and examined agree with above monitor labs continue present supportive care f/u with GI post D/C (Landry Dickens MD) Michell Ingram Jan 11, 2018 12:16 Landry Dickens MD Jan 11, 2018 20:19
--- NOTE | 2018-01-11 13:54 | HHI.PR ---
Subjective Remarks down to 5bm per day. no pain eager for d/c Objective Vitals heart reg lung cta abd s/nt ext no edema Vital Signs Date Time Temp Pulse Resp B/P (MAP) Pulse Ox O2 Delivery O2 Flow Rate FiO2 01/11/18 12:00 97.3 101 15 86/55 (65) 98 01/11/18 08:00 96.8 71 16 113/75 (88) 98 01/11/18 00:00 97.7 72 18 122/79 (93) 97 01/10/18 20:00 97.7 77 16 112/66 (81) 98 01/10/18 19:56 98 21 01/10/18 16:00 97.9 88 15 98/65 (76) 98 Result Diagram: 01/11/18 0514 01/11/18 0514 Imaging Last Impressions Abdomen/Pelvis CT 01/05/18 0851 Signed Impressions: Service Date/Time: Friday, January 05, 2018 12:33 - CONCLUSION: Mild to moderate colitis involving transverse colon There is no free air or free fluid . Alex Johnson MD FACR A/P Problem List: (1) C. difficile diarrhea ICD Codes: A04.72 - Enterocolitis due to Clostridium difficile, not specified as recurrent Status: Acute Plan: C diff diarrhea - This is a 57 year old male patient with a past medical which includes chronic ulcerative colitis, DDD, hep C. Presented to GI for bloody diarrhea and underwent colonoscopy 01/01 consistent with UC flare. His Imuran was doubled and he was started on cipro/flagyl. The bloody diarrhea improved but he had persistent diarrhea. This prompted evaluation in the ED - Pt was found to have C.diff - CT Abd/pelvis --> Mild to moderate colitis involving transverse colon There is no free air or free fluid - Pt now on PO vanco/IV Flagyl/Questran - Pt was started on Rifaximin 550mg po BID, Asacol 1600mg po Q8H, Canasa supp HS , and Solu-Medrol 40mg Q8H on 01/07 per GI recommendations - Imuran on hold. - Steroids deescalated to 40mg IV Q12H on 01/09. - Pt has been refusing Canasa Supp - GI considering changing Flagyl to PO - Stool studies are negative for enteric pathogens DC home when ok with GI ...?tomorrow. Ulcerative colitis - See above - Pts home meds, Azathioprine 50mg PO BID and Balsalazide 750 mg PO TID, are on hold - Recent colonoscopy 01/01/18 --> Normal terminal ileum, colonic mucosa appeared normal in the ascending colon, cecum, transverse colon and descending colon, circumferential abnormal mucosa was found in the sigmoid colon and rectum. The mucosa was congested, edematous, erythematous, nodular, friable, ulcerated and had scarring and deep ulcers; multiple biopsies were performed. - CT abd/Pelvis reviewed and reveals: Mild to Moderate colitis involving transverse colon. There is no free air or free fluid. - TB QuantaSure was negative and hep b viral load was negative in preparation for possible biologics (2) Ulcerative colitis ICD Codes: K51.90 - Ulcerative colitis, unspecified, without complications Status: Bg Cantrell MD Jan 11, 2018 13:54
[2018-01-11 14:28] VITALS: BP 101/68
[2018-01-11 16:00] VITALS: BP 103/63; PULSE 80; RESP 16; TEMP 97.9; O2SAT 97
[2018-01-11 20:36] VITALS: BP 106/71; PULSE 87; RESP 18; TEMP 98.5; O2SAT 97
[2018-01-11] MEDS: MESALAMINE 1000 MG SUPP RECTAL SCH (21:00)
[2018-01-12 00:50] VITALS: BP 108/74; PULSE 74; RESP 18; TEMP 97.5; O2SAT 98
[2018-01-12] MEDS: metroNIDAZOLE 500 MG INJ 100 ML IV SCH ×3 (02:00→12:59)
[2018-01-12] MEDS: methylPREDNISolone SOD SUCC 40 MG/1 ML VIAL IV PUSH SCH ×2 (02:00→12:56)
[2018-01-12] MEDS: MESALAMINE HD 800 MG DELAYED RELEASE TAB PO SCH ×2 (06:14→12:58)
[2018-01-12 08:00] VITALS: BP 96/59; PULSE 87; RESP 17; TEMP 96.4; O2SAT 97
[2018-01-12] MEDS: SODIUM CHLORIDE 0.9% FLUSH 10 ML FLUSH IV FLUSH SCH (09:28)
[2018-01-12] MEDS: LACTOBACILLUS ACIDOPHILUS TAB PO SCH (09:29)
[2018-01-12] MEDS: RIFAXIMIN 550 MG TAB PO SCH (09:29)
[2018-01-12] MEDS: CHOLESTYRAMINE 4 GM PACKET PO SCH (09:30)
[2018-01-12] MEDS: VANCOMYCIN 500 MG VIAL (FOR ORAL USE ONLY) PO SCH ×3 (09:31→17:18)
[2018-01-12 10:17] VITALS: O2SAT 97
[2018-01-12 12:00] VITALS: BP 95/64; PULSE 90; RESP 20; TEMP 97.5; O2SAT 97
--- NOTE | 2018-01-12 13:50 | HHI.GIFU ---
Subjective Remarks Pt resting in bed in NAD. EAger to go home. Diarrhea somewhat improved from before. No n/v, abd pain. Tolerating diet. (Shu Perera) Objective Vitals I&O Vital Signs Date Time Temp Pulse Resp B/P (MAP) Pulse Ox O2 Delivery O2 Flow Rate FiO2 01/12/18 12:00 97.5 90 20 95/64 (74) 97 01/12/18 10:17 97 01/12/18 08:00 96.4 87 17 96/59 (71) 97 01/12/18 00:50 97.5 74 18 108/74 (85) 98 01/11/18 20:36 98.5 87 18 106/71 (83) 97 01/11/18 16:00 97.9 80 16 103/63 (76) 97 01/11/18 14:28 101/68 (79) I/O 01/11/18 01/11/18 01/11/18 01/12/18 01/12/18 01/12/18 07:00 15:00 23:00 07:00 15:00 23:00 Intake Total 560 ml 100 ml 1580 ml 440 ml Balance 560 ml 100 ml 1580 ml 440 ml Intake Oral 360 ml 1480 ml 240 ml IV Total 200 ml 100 ml 100 ml 200 ml # Voids 3 3 3 # Bowel Movements 2 2 Laboratory Date/Time Source Procedure Growth Status 01/05/18 08:50 Stool Stool - Final NO ENTERIC PATHOGENS DETECTED BY PCR... Complete Imaging Last Impressions Abdomen/Pelvis CT 01/05/18 0851 Signed Impressions: Service Date/Time: Friday, January 05, 2018 12:33 - CONCLUSION: Mild to moderate colitis involving transverse colon There is no free air or free fluid . Alex Johnson MD FACR Physical Exam HEENT: Normocephalic; atraumatic CHEST: Even/unlabored CARDIAC: RRR ABDOMEN: Soft, nondistended, nontender, bowel sounds active EXTREMITIES: No clubbing, cyanosis, or edema. SKIN: Normal RADIO INTERFERENCE EXPERT: No focal deficits; awake, oriented times three. (Shu Perera) Assessment and Plan Plan Assessment: Hisltory - Chronic UC, managed outpatient with Azathioprine 100mg daily and Balsalazide 750mg daily. Recently evaluated in office for blood diarrhea, given one week prescription of Cipro and Flagyl Finished abx prior to colonoscopy. Colonoscopy (01/01/18) --> Normal terminal ileum, Colonic mucosa appeared normal in the ascending colon, cecum, transverse colon, and descending colon, biopsies obtained every 10cm, circumferential abnormal mucosa in the sigmoid colon and rectum. Mucosa appeared congested, edematous, erythematous, friable, ulcerated and had scarring and deep ulcers. Internal hemorrhoids. Pt reports Azathioprine dose was doubled after procedure. Presented to ER today with complaints of lower abdominal pain, intermittent, not associated with BMs and uncontrollable diarrhea. Reports 30 episodes a day, now with fecal incontinence. Denies continuation of blood in stool. C diff toxin PCR positive, epid negative. Denies history of C. Diff. Reports possible fever Friday morning. Denies recent travel, recent abx other than those previously mentioned. CT abdomen and pelvis with IV contrast (01/05) noted --> Mild to moderate colitis involving transverse colon. There is no free air or free fluid. - Hx Hepatitis C- LFTs WNL (01/10) --> Improvement in BMs, semi-formed, 3 so far today, small amount of blood but reports overall improvement. Denies abdominal pain. No repeat labs from today. On Solumedrol, Mesalamine PO (pt refusing rectal), Rifaximin, IV Flagyl, oral Vanco, cholestyramine, probiotics. TB and Hep B testing complete for biologics to be started. (01/11) --> Pt continue to improve. Very anxious and hopeful to be going home tomorrow. Remains on same medication as previously listed. Mild improvement in H/H today. 01/12/18 Hh stable. pt wants to go home, denies abd pain. diarrhea somewhat improved and he is eating ok. Plan: IKER PO steroids Mesalamine Rifaximin PO abx Cholestyramine Probiotics ok to d/c from GI standpoint f/u with GI after d/c Pt has been seen and examined by myself and Dr. Dickens and this note is written on his behalf (Shu Perera) Physician Comments Agree with above Patient to follow-up with GI post discharge (Landry Dickens MD) Shu Perera Jan 12, 2018 13:50 Landry Dickens MD Jan 12, 2018 18:36
[2018-01-12 16:00] VITALS: BP 93/60; PULSE 83; RESP 17; TEMP 96.8; O2SAT 98
[2018-01-12] MEDS ORDERED: VANC500I3 PO (16:54)
[2018-01-12] MEDS ORDERED: LACT PO (16:54)
[2018-01-12] MEDS ORDERED: MESA1TAB2 PO (16:54)
[2018-01-12] MEDS ORDERED: CHOL4POW4 PO (16:54)
[2018-01-12] MEDS ORDERED: PRED20 PO (16:55)
--- NOTE | 2018-01-12 17:02 | HHI.DS ---
Discharge Summary Admission Date Jan 05, 2018 at 14:07 Discharge Date: Jan 12, 2018 Admitting Diagnosis C Diff diarrhea (1) C. difficile diarrhea Diagnosis: Principal ICD Codes: A04.72 - Enterocolitis due to Clostridium difficile, not specified as recurrent Status: Acute (2) Ulcerative colitis Diagnosis: Principal ICD Codes: K51.90 - Ulcerative colitis, unspecified, without complications Status: Acute Consultants Dr. Linda Tarango, Gastroenterology Brief History This is a 57 year old male patient with a past medical which includes chronic ulcerative colitis for 20+ years, DDD, hep C virus. Patient was having bloody diarrhea and was started on Cirpo and Flagyl for possible colitis flare up about two weeks ago. After completing the Cipro and Flagyl his bloody diarrhea stopped. Patient then had colonoscopy (01/01) at that time patient was told to double his Azathioprine. Patient then presented to the ER today with Diarrhea, C diff positive. Patient reports associate intermitted stabbing abd pain as well. Patient has been having uncontrollable diarrhea up to 30 episodes a day. Patient reports feeling run down and fatigued, possible subjective fever although he did not check with a thermometer. Patient believes has has lost between 10 to 15 pounds over the past 2-3 weeks. Patient denies chills, SOB, chest pain or diaphoresis. Patient reports he has not had C diff before. CBC/BMP: 01/11/18 0514 01/11/18 0514 Significant Findings Laboratory Tests Test 01/11/18 05:14 Red Blood Count 3.97 MIL/MM3 (4.50-5.90) Hemoglobin 12.3 GM/DL (13.0-17.0) Hematocrit 35.5 % (39.0-51.0) Monocytes (%) (Auto) 12.1 % (0.0-8.0) Monocytes # (Auto) 1.1 TH/MM3 (0-0.9) Calcium Level 7.9 MG/DL (8.5-10.1) Imaging Last Impressions Abdomen/Pelvis CT 01/05/18 0851 Signed Impressions: Service Date/Time: Friday, January 05, 2018 12:33 - CONCLUSION: Mild to moderate colitis involving transverse colon There is no free air or free fluid . Alex Johnson MD FACR PE at Discharge GENERAL: This is a well-nourished, well-developed patient, in no apparent distress. CARDIOVASCULAR: Regular rate and rhythm without murmurs, gallops, or rubs. RESPIRATORY: Clear to auscultation. Breath sounds equal bilaterally. No wheezes , rales, or rhonchi. GASTROINTESTINAL: Abdomen soft, non-tender, nondistended. Normal active bowel sounds MUSCULOSKELETAL: Extremities without clubbing, cyanosis, or edema. NEURO: Alert & Oriented x4 to person, place, time, situation. Moves all ext x4 Hospital Course (1) C. difficile diarrhea ICD Codes: A04.72 - Enterocolitis due to Clostridium difficile, not specified as recurrent Status: Acute Plan: C diff diarrhea - This is a 57 year old male patient with a past medical which includes chronic ulcerative colitis, DDD, hep C. Presented to GI for bloody diarrhea and underwent colonoscopy 01/01 consistent with UC flare. His Imuran was doubled and he was started on cipro/flagyl. The bloody diarrhea improved but he had persistent diarrhea. This prompted evaluation in the ED - Pt was found to have C.diff - CT Abd/pelvis --> Mild to moderate colitis involving transverse colon There is no free air or free fluid - Pt now on PO vanco/IV Flagyl/Questran - Pt was started on Rifaximin 550mg po BID, Asacol 1600mg po Q8H, Canasa supp HS , and Solu-Medrol 40mg Q8H on 01/07 per GI recommendations - Imuran on hold. - Steroids deescalated to 40mg IV Q12H on 01/09. - Pt has been refusing Canasa Supp - Stool studies are negative for enteric pathogens - Pt eager for discharge to home - pt to continue PO vancomycin x 3d after discharge - cholestyramine, and lactobillus - mesalamine - prednisone taper - f/u with PCP, Dr. Vail in 1 week - f/u with [facility] in 2-3 weeks Ulcerative colitis - See above - Pts home meds, Azathioprine 50mg PO BID and Balsalazide 750 mg PO TID, are on hold - Recent colonoscopy 01/01/18 --> Normal terminal ileum, colonic mucosa appeared normal in the ascending colon, cecum, transverse colon and descending colon, circumferential abnormal mucosa was found in the sigmoid colon and rectum. The mucosa was congested, edematous, erythematous, nodular, friable, ulcerated and had scarring and deep ulcers; multiple biopsies were performed. - CT abd/Pelvis reviewed and reveals: Mild to Moderate colitis involving transverse colon. There is no free air or free fluid. - TB QuantaSure was negative and hep b viral load was negative in preparation for possible biologics - see above Pt Condition on Discharge: Stable Discharge Disposition: Discharge Home Discharge Instructions DIET: Follow Instructions for: As Tolerated, No Restrictions Activities you can perform: Regular-No Restrictions Follow up Referrals: Gastroenterology - 2 Weeks with Linda Tarango MD PCP Follow-up - [address] Ezio Vail New Medications: Prednisone (Prednisone) 20 Mg Tab 20 MG PO DIRECTED for ulcerative colitis, #24 TAB 0 Refills Take 60 MG daily x 4 days, then 40 MG x 4 days, then 20 MG daily x 4 days. Cholestyramine (Cholestyramine) 4 Gm/Pkt Powd 4 GM PO Q12HR for clostridium dificile, #40 PACKET 0 Refills 1 packet contains 4 grams of cholestyramine. Lactobacillus Acidophilus (Acidophilus/l-Sporogenes) 35 Million Cell-25 Million Cell Tab 1 TAB PO Q12HR for clostridium dificile, #30 TAB [address] (Mesalamine DR) 800 Mg Tab 1600 MG PO Q8HR for ulcerative colitis, #90 TAB 0 Refills Vancomycin Inj (Vancomycin Inj) 500 Mg Inj 125 MG PO QID for clostridium dificile, #12 INJECTION 0 Refills Discontinued Medications: Azathioprine (Azathioprine) 50 Mg Tab 100 MG PO DAILY for Immunosuppression, #30 TAB 0 Refills Hazardous agent use appropriate precautions for handling and disposal. Balsalazide (Balsalazide) 750 Mg Cap 750 MG PO TID for Ulcerative colitis, #90 CAP 0 Refills Asher Moss DO Jan 12, 2018 17:01
== END 2018-01-12 18:43 | disposition home or self-care (01) | DRG 372 ==
LOC: NEPE 07:59 → NEDA 13:10 → OBSVTOIN 14:07 → N07B 15:21
PROVIDERS: ADMIT Hospitalist; ATTEND Hospitalist
DX: A04.72 Enterocolitis due to Clostridium difficile, not specified as recurrent (principal); K51.90 Ulcerative colitis, unspecified, without complications; Z68.1 Body mass index [BMI] 19.9 or less, adult; R63.4 Abnormal weight loss; F32.9 Major depressive disorder, single episode, unspecified; E86.0 Dehydration; K64.8 Other hemorrhoids; Z87.891 Personal history of nicotine dependence; Z86.19 Personal history of other infectious and parasitic diseases
CPT/HCPCS: 74177; 80048; 80053; 81001; 82784; 83516; 83690; 83735; 84443; 85025; 85652; 86480; 87493; 87506; 87517; 96361; 96372; 96374; J0500; J2405; J2920; J7030; Q9963; Q9967